=== PATIENT | female | born 1975 | race Caucasian/White ===

== ENCOUNTER 2022-07-09 16:47 | Emergency (ER) | payer OTHER, SELFPAY ==
--- NOTE | ~2022-07-09 | CT_ITS ---
EXAMINATION: CT ABDOMEN AND PELVIS WITH CONTRAST CLINICAL INFORMATION: Left lower quadrant pain COMPARISON: None available. TECHNIQUE: Multidetector volumetric images were obtained from the superior aspect of the liver through the pubic symphysis following administration 85 mL of Omnipaque 350 intravenous contrast. Sagittal and coronal reformatted images were obtained on the technologist's workstation. Oral contrast: No This CT examination was performed using dose optimization techniques as appropriate, variously including the following: *Automated exposure control *Adjustment of mA and/or kV according to patient size (this includes techniques or standardized protocols for targeted exams where dose is matched to indication/reason for exam; i.e. extremities or head) *Use of iterative reconstruction technique DLP: 318 mGy-cm FINDINGS: LUNG BASES: No suspicious abnormality in the visualized lower chest LIVER, GALLBLADDER, AND BILIARY TREE: The liver appears within normal limits the gallbladder is decompressed. No opaque gallstone. No biliary dilation PANCREAS: The pancreatic duct is top normal. No suspicious mass. SPLEEN: Within normal limits ADRENAL GLANDS: No suspicious abnormality KIDNEYS AND URETERS: There is fairly marked cortical medullary differentiation which is symmetric. This could be related to phase of enhancement but is nonspecific. There is no suspicious renal mass. The renal contours are smooth. There is no definite ureteral calculus. BLADDER: The bladder is mildly distended. No suspicious focal abnormality. GASTROINTESTINAL TRACT: Assessment limited by paucity of abdominal fat. There is some opaque material within the colon which could be from previous contrast administration. No convincing localized pericolonic fat stranding. No significant small bowel dilation. No suspicious abnormality the stomach. ABDOMINAL WALL: No significant hernia is appreciated. LYMPH NODES: There are no measurably enlarged abdominal or pelvic lymph nodes. There are multiple surgical clips in the retroperitoneum on the left. VASCULAR: There is no abdominal aortic aneurysm. The portal vein enhances. PELVIC VISCERA: There are coarse calcifications in the uterus consistent with uterine fibroids. No suspicious adnexal mass or collection. OSSEOUS STRUCTURES: No suspicious focal lesion CT/CT abdomen pelvis w IV con IMPRESSION: 1. No etiology for left lower quadrant pain demonstrated. 2. No evidence of bowel obstruction or abscess. 3. No evidence of urinary, biliary or GI tract obstruction. Fleischner guidelines were followed.
[2022-07-09 17:10] VITALS: BP 104/67; PULSE 66; RESP 16; TEMP 36.9; O2SAT 100; BMI 21.2
[2022-07-09 17:41] LABS: UPreg QC Valid YES
[2022-07-09 17:43] LABS: Appearance Urine Cloudy; Color Urine Yellow; Glucose Urine UA Negative (Negative); Leukocyte Esterase Urine Negative (Negative); Nitrite Urine Negative (Negative); Specific Gravity - Urine 1.015 (1.005-1.025); UMIC TRIGGER UACC YES; Urine Blood Moderate (2+) (Negative); Urine Ketones >=160 mg/dL (Negative); Urine Protein Trace mg/dL (Neg-Trace)
[2022-07-09 17:44] LABS: Urine Pregnancy NEGATIVE (NEGATIVE)
[2022-07-09 17:53] LABS: IDNOW Serial# 08D9AD1C
[2022-07-09 17:54] LABS: COVID-19 Test Negative (Negative)
[2022-07-09 17:55] LABS: Bacteria Urine None Seen (None Seen); Hyaline Casts Urine 0-2 /LPF (0-2); RBC Urine 0-2 /HPF (0-2); Squamous Epithelial Cell Urine 0-2 /HPF (0-2); WBC Urine 0-5 /HPF (0-5)
--- NOTE | 2022-07-09 19:26 | ED_ITS ---
HPI - Nausea/Vomiting/Diarrhea General Chief complaint: Nausea/Vomiting/Diarrhea Stated complaint: n/v covid like symptoms Time Seen by Provider: 07/09/22 17:13 Source: patient Mode of arrival: EMS History of Present Illness HPI Narrative: 47-year-old female without significant past medical history states that she has been experiencing nausea, vomiting, multiple episodes of diarrhea since evening. She denies any contaminated food or recent travel. She also denies any blood with the stool and states that her last episode of diarrhea was earlier today and she has only been dry heaving since then. Related Data Previous Rx's Medication Instructions Recorded ondansetron HCl 4 mg tablet 4 mg PO Q8H PRN nausea and 07/09/22 vomiting 4 days #10 tabs Allergies Allergy/AdvReac Type Severity Reaction Status Date / Time No Known Allergies Allergy Verified 07/09/22 17:09 Review of Systems Review of Systems: Pertinent positives and negatives as stated in HPI PMFSH Past Medical History Source: nursing notes reviewed Social History Social History Advance Directives: No Advance Directives Information Provided: No Physical Exam Vital Signs: Vital Signs: Last Vital Signs Temp 98.2 F 07/09/22 21:11 Pulse 77 07/09/22 21:11 Resp 17 07/09/22 21:11 BP 121/71 07/09/22 21:11 Pulse Ox 99 07/09/22 21:11 O2 Del Method Room Air 07/09/22 21:11 BMI result Body Mass Index 21.2 VITAL SIGNS: Reviewed. GENERAL: Well developed, well nourished, in no acute distress. HEAD: Normocephalic/atraumatic EYES: PERRLA, EOMI EARS: Ext canals without abnormality, TMs non-bulging and non-erythematous NOSE: Nares patent bilateral OROPHARYNX: no oral lesions noted, posterior pharynx clear and non-erythematous without noted tonsillar enlargement/erythema/exudates NECK: Supple, no adenopathy LUNGS: Normal breath sounds. No adventitious sounds or accessory muscle use. SpO2<100> CARDIOVASCULAR: Regular rate and rhythm without noted murmurs ABDOMEN: Soft, left lower quadrant pain, non-distended with bowel sounds. MUSCULOSKELETAL: No tenderness, deformities, or effusions noted on gross inspection. EXTREMITIES: No cyanosis, clubbing or edema. SKIN: Inspection of the skin reveals no rashes NEUROLOGIC: Alert and oriented x 4. Strength and sensation to light touch were grossly intact x 4. Medications Administered Discontinued Medications Generic Name Dose Route Start Last Admin Trade Name Pachecoq PRN Reason Stop Dose Admin Iohexol 100 ml 07/09/22 20:09 07/09/22 20:09 Iohexol 350 Mg/Ml 100 Ml Infus..Btl IV 07/09/22 20:10 85 ml ONCE ONE Administration Ondansetron HCl 4 mg 07/09/22 17:14 07/09/22 17:44 Ondansetron Odt 4 Mg Tab.Rapdis TRANSLINGU 07/09/22 17:15 Not Given ONCE ONE Medical Decision Making Medical Decision Making MDM Narrative: 47-year-old female with multiple episodes of nausea, vomiting, diarrhea suggesting possible gastroenteritis, renal colic, diverticulitis and lower clinical suspicion for UTI. - labs, IV fluids, antiemetics, CT abdomen/pelvis, UA Review of all investigations demonstrates likely gastroenteritis or possible cyclical vomiting. Patient is tolerating oral intake and will be discharged at this time. She is otherwise hemodynamically stable. Differential Diagnosis Please see the discussion above Lab Data Please see the discussion above Labs: Lab Results 07/09/22 07/09/22 07/09/22 Range/Units 17:32 17:33 17:33 Urine Color Yellow Urine Appearance Cloudy Urine pH 6.0 (5.0-9.0) Ur Specific [place] 1.015 (1.005-1.025) Urine Protein Trace (Neg-Trace) mg/dL Urine Glucose (UA) Negative (Negative) mg/dL Urine Ketones >=160 (Negative) mg/dL Urine Blood Moderate (2+) H (Negative) Urine Nitrite Negative (Negative) Ur Leukocyte Esterase Negative (Negative) Urine RBC 0-2 (0-2) /HPF Urine WBC 0-5 (0-5) /HPF Ur Squamous Epith Cells 0-2 (0-2) /HPF Urine Bacteria None Seen (None Seen) Hyaline Casts 0-2 (0-2) /LPF Urine Test NEGATIVE (NEGATIVE) COVID-19 (ANTHONY) Negative (Negative) COVID-19 Clin Com See Note Radiology Impression Radiologist Impression: My interpretation is in agreement with radiology's impression of the imaging study. Discharge Plan Discharge Clinical Impression: Gastroenteritis, Dehydration Patient Disposition: Home, Self-Care Instructions: Dehydration (ED), Gastroenteritis (ED) Additional Instructions: 1. You have been prescribed in antinausea medication and should use this medication to continue to hydrate. 2. Use caution with the cannabis as this may contribute to your symptoms. 3. Follow-up with your primary care provider. Return to the ER for any worsening symptoms. Prescriptions: New ondansetron HCl 4 mg tablet 4 mg PO Q8H PRN (Reason: nausea and vomiting) 4 Days Qty: 10 0RF
[2022-07-09] MEDS: iohexoL 350 MG/ML 100 ML INFUS..BTL IV (20:09)
[2022-07-09 21:11] VITALS: BP 121/71; PULSE 77; RESP 17; TEMP 36.8; O2SAT 99
== END 2022-07-09 22:47 | disposition home or self-care (01) ==
PROVIDERS: Emergency Provider Student in an Organized Health Care Education/Training Program
DX: K52.9 Noninfective gastroenteritis and colitis, unspecified (principal); E86.0 Dehydration; Z20.822 Contact with and (suspected) exposure to COVID-19; Z20.828 Contact with and (suspected) exposure to other viral communicable diseases; Z79.899 Other long term (current) drug therapy
CPT/HCPCS: 74177; 81001; 81025; 87635; 99284; Q9967

== ENCOUNTER 2022-08-15 21:32 | Inpatient (IN) | payer OTHER, SELFPAY ==
[2022-08-16] MEDS: hydrOXYzine HCL 25 MG TABLET PO (00:30)
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
[2022-08-16 01:09] VITALS: BMI 22.0
[2022-08-16 06:00] VITALS: BP 128/89; PULSE 101; RESP 16; TEMP 37.2
[2022-08-16 09:07] LABS: MANUAL DIFF FLAG NO
[2022-08-16 09:17] LABS: Basophils Absolute Auto 0.1 X10*3/uL (0.0-0.2); Basophils Percent Auto 0.9 % (0-2); Eosinophils Absolute Auto 0.1 X10*3/uL (0.0-0.4); Eosinophils Percent Auto 2.3 % (0-4); Hematocrit 38.8 % (37.0-47.0); Hemoglobin 13.3 g/dl (12.0-16.0); Imm Gran Abs Auto 0.02 X10*3/uL (0.00-0.03); Imm Gran Pct Auto 0.3 % (0.0-0.4); Lymphocytes Absolute Auto 2.6 X10*3/uL (1.2-4.9); Lymphocytes Percent Auto 45.5 % (20-40); Mean Corpuscular HGB Conc 34.3 g/dl (31.0-35.0); Mean Corpuscular Volume 87.4 fL (80.0-98.0); Mean Platelet Volume 10.8 fL (9.4-12.3); Monocytes Absolute Auto 0.3 X10*3/uL (0.1-1.2); Monocytes Percent Auto 5.9 % (2-11); Neutrophils Absolute Auto 2.6 x10*3/uL (2.0-8.3); Neutrophils Percent Auto 45.1 % (45-73); Platelet Count 187 X10*3/uL (160-400); Red Blood Count 4.44 X10*6/uL (4.20-5.50); Red Cell Distribution Width 12.6 % (11.0-16.0); White Blood Count 5.8 X10*3/uL (4.8-10.8)
[2022-08-16 10:00] LABS: Alanine Aminotransferase 17 U/L (0-31); Albumin Level 3.8 g/dL (3.5-5.0); Alkaline Phosphatase 53 U/L (39-117); Anion Gap 13 (12-20); Aspartate Amino Transferase 21 U/L (5-31); Bilirubin Total 1.5 mg/dL (0.0-1.0); Blood Urea Nitrogen 7 mg/dL (9-16); Calcium 9.4 mg/dL (8.4-10.2); Carbon Dioxide 24 mmol/L (22-29); Chloride 108 mmol/L (96-108); Cholesterol 185 mg/dL; Creatinine Clr Calc Pharmacy 68.1; Estimated Glomerular Filt Rate > 60; Glucose Fasting 84 mg/dL (60-99); HDL Cholesterol 68 mg/dL; LDL Cholesterol Calculated 107 mg/dl; Potassium 3.8 mmol/L (3.3-5.1); Sodium 141 mmol/L (135-145); Total Protein 6.9 g/dL (6.5-8.0); Triglycerides 51 mg/dL
--- NOTE | 2022-08-16 11:04 | PM.PSYDC ---
DS: Providers Provider Date of admission: 08/15/22 21:32 Primary care physician: Unknown Physician Consults: 08/15/22 22:24 Consult to Hospitalist Routine Comment: Consulting Provider: Hospitalist Reason For Exam: adm physical DS: Medications Discharge Medications Home Medications: Previous Rx's Medication Instructions Recorded ondansetron HCl 4 mg tablet 4 mg PO Q8H PRN nausea and 07/09/22 vomiting 4 days #10 tabs Data Data Completed and Pending Completed studies during hospitalization [Text1]: 08/16/22 08/16/22 08:04 08:04 WBC 5.8 RBC 4.44 Hgb 13.3 Hct 38.8 MCV 87.4 MCH 30.0 MCHC 34.3 RDW 12.6 Plt Count 187 MPV 10.8 Immature Gran % (Auto) 0.3 Neut % (Auto) 45.1 Lymph % (Auto) 45.5 H Calvert % (Auto) 5.9 Eos % (Auto) 2.3 Baso % (Auto) 0.9 Lymph # (Auto) 2.6 Calvert # (Auto) 0.3 Eos # (Auto) 0.1 Baso # (Auto) 0.1 Abs Immat Gran (auto) 0.02 Absolute Neuts (auto) 2.6 Absolute Nucleated RBC 0.000 Nucleated RBC % (auto) 0.0 Sodium 141 Potassium 3.8 Chloride 108 Carbon Dioxide 24 Anion Gap 13 BUN 7 L Creatinine 0.79 Estim Creat Clear Calc 68.1 Estimated GFR > 60 Fasting Glucose 84 Calcium 9.4 Total Bilirubin 1.5 H AST 21 ALT 17 Alkaline Phosphatase 53 Total Protein 6.9 Albumin 3.8 Triglycerides 51 Cholesterol 185 LDL Cholesterol, Calc 107 HDL Cholesterol 68 DS: Summary Time Spent with Patient Time attestation: Total time managing care of this patient today ____ minutes. Discharge Plan Discharge Referrals: Physician,Unknown J [Primary Care Provider] - 1 Week Discharge Medications: No Action ondansetron HCl 4 mg tablet 4 mg PO Q8H PRN (Reason: nausea and vomiting) 4 Days Qty: 10 0RF
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
[2022-08-16 13:21] LABS: UPreg QC Valid YES; Urine Pregnancy NEGATIVE (NEGATIVE)
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
[2022-08-16 15:16] LABS: Estimated Average Glucose 85 mg/dL; Hemoglobin A1c % 4.6 %
[2022-08-16] MEDS: SUMAtriptan succinate 50 MG TABLET PO (16:34)
[2022-08-16 18:00] VITALS: BP 126/78; PULSE 82; TEMP 36.7; O2SAT 97
[2022-08-16] MEDS: Magnesium Hydrox/Alum Hydrox 30 ML ORAL.SUSP PO (18:29)
[2022-08-16] MEDS: Ondansetron ODT 8 MG TAB.RAPDIS TRANSLINGU (18:53)
[2022-08-16] MEDS: ARIPiprazole 2 MG TABLET PO (19:40)
[2022-08-16] MEDS: clonazePAM 0.5 MG TABLET PO (20:30)
--- NOTE | 2022-08-16 21:47 | PC.NURSE ---
Patient did not want POC done because she feels her diabetes is diet controlled. She did c/o migraine headache and was given Imitrex with positive effect. She also c/o nausea (from the hospital food, and she is vegan) and Zofran as a prn was ordered by Dr. Calixto. At this time, 2150 patient is asleep and in NAD.
[2022-08-17 06:00] VITALS: BP 124/82; PULSE 97; RESP 16
[2022-08-17 08:09] LABS: Glucose, Whole Blood 108 mg/dL (60-115)
[2022-08-17] MEDS: Sertraline HCL 25 MG TABLET PO (08:49)
[2022-08-17] MEDS: ARIPiprazole 2 MG TABLET PO (08:49)
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
[2022-08-17 16:37] LABS: Glucose, Whole Blood 147 mg/dL (60-115)
[2022-08-17 16:50] VITALS: BP 131/93; PULSE 92; RESP 16; TEMP 36.9; O2SAT 99
[2022-08-17] MEDS: cloNIDine HCL 0.1 MG TABLET PO (19:19)
[2022-08-18] MEDS: ARIPiprazole 2 MG TABLET PO (08:35)
[2022-08-18] MEDS: Sertraline HCL 50 MG TABLET PO (08:35)
[2022-08-18 08:48] LABS: Glucose, Whole Blood 93 mg/dL (60-115)
[2022-08-18 09:44] VITALS: BP 145/90; PULSE 85; RESP 17; TEMP 36.8; O2SAT 100
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
[2022-08-18] MEDS: Magnesium Hydrox/Alum Hydrox 30 ML ORAL.SUSP PO (10:42)
[2022-08-18] MEDS: Acetaminophen 325 MG TABLET 650 MG PO (12:14)
[2022-08-18 18:00] VITALS: BP 141/85; PULSE 96; RESP 16; TEMP 36; O2SAT 97
[2022-08-18] MEDS: cloNIDine HCL 0.1 MG TABLET PO (19:43)
[2022-08-18 23:02] LABS: Glucose, Whole Blood 133 mg/dL (60-115)
[2022-08-19 08:06] VITALS: BP 136/83; PULSE 91; RESP 15; TEMP 36.7; O2SAT 100
[2022-08-19] MEDS: Sertraline HCL 25 MG TABLET 75 MG PO (08:10)
[2022-08-19] MEDS: ARIPiprazole 2 MG TABLET PO (08:10)
[2022-08-19] MEDS: cloNIDine HCL 0.1 MG TABLET PO ×2 (08:14→19:50)
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
[2022-08-19 16:42] LABS: Glucose, Whole Blood 81 mg/dL (60-115)
[2022-08-19 16:46] LABS: Glucose, Whole Blood 103 mg/dL (60-115)
[2022-08-19 19:45] VITALS: BP 129/79; PULSE 80; TEMP 36.8
[2022-08-19] MEDS: Acetaminophen 325 MG TABLET 650 MG PO (19:49)
[2022-08-19] MEDS: clonazePAM 0.5 MG TABLET PO (19:50)
[2022-08-19] MEDS: Mirtazapine 15 MG TABLET PO (19:50)
[2022-08-19 20:53] LABS: Glucose, Whole Blood 86 mg/dL (60-115)
--- NOTE | 2022-08-20 03:40 | PC.NURSE ---
Patient came out of room distraught, crying. Stated her roommate, who is confused and just assigned a sitter, was being very loud and getting up often loudly asking sitter to be assisted to the bathroom. This is the second night I haven't gotten any sleep because of her, I can't take it anymore! TW made the decision to let her rest in Rm [id number] for the night. Patient was very grateful and became calm, appearing to sleep right away.
[2022-08-20 08:01] VITALS: BP 124/91; PULSE 84; RESP 16; TEMP 36.8; O2SAT 99
[2022-08-20 08:28] LABS: Glucose, Whole Blood 87 mg/dL (60-115)
[2022-08-20] MEDS: ARIPiprazole 2 MG TABLET PO (09:30)
[2022-08-20] MEDS: Sertraline HCL 25 MG TABLET 75 MG PO (09:30)
[2022-08-20] MEDS: Acetaminophen 325 MG TABLET 650 MG PO ×2 (09:34→20:08)
[2022-08-20 16:37] LABS: Glucose, Whole Blood 99 mg/dL (60-115)
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
[2022-08-20 19:46] VITALS: BP 168/72; PULSE 84; TEMP 36.3
[2022-08-20] MEDS: Mirtazapine 30 MG TABLET PO (20:08)
[2022-08-20] MEDS: cloNIDine HCL 0.1 MG TABLET PO (20:08)
[2022-08-20] MEDS: clonazePAM 0.5 MG TABLET PO (20:08)
[2022-08-20 20:20] LABS: Glucose, Whole Blood 90 mg/dL (60-115)
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
[2022-08-21] MEDS: Acetaminophen 325 MG TABLET 650 MG PO (08:37)
[2022-08-21] MEDS: ARIPiprazole 2 MG TABLET PO (08:37)
[2022-08-21] MEDS: Sertraline HCL 25 MG TABLET 75 MG PO (08:37)
[2022-08-21 08:40] VITALS: BP 160/94; PULSE 69; RESP 18; TEMP 36.3; O2SAT 100
[2022-08-21 08:55] LABS: Glucose, Whole Blood 77 mg/dL (60-115)
[2022-08-21 19:23] VITALS: RESP 18; TEMP 36.2; O2SAT 97
[2022-08-21] MEDS: cloNIDine HCL 0.1 MG TABLET PO (20:47)
[2022-08-21] MEDS: traZODone HCL 50 MG TABLET PO (21:26)
[2022-08-22] MEDS: Acetaminophen 325 MG TABLET 650 MG PO ×2 (01:05→08:59)
[2022-08-22] MEDS: traZODone HCL 50 MG TABLET PO (01:05)
[2022-08-22] MEDS: Sertraline HCL 100 MG TABLET PO (08:59)
[2022-08-22] MEDS: ARIPiprazole 2 MG TABLET PO (08:59)
[2022-08-22] MEDS: hydrOXYzine HCL 25 MG TABLET PO (09:02)
[2022-08-22 13:41] VITALS: BP 118/82; TEMP 36.4
[2022-08-22 21:15] VITALS: BP 134/90; PULSE 76; TEMP 36.4; O2SAT 100
[2022-08-22] MEDS: cloNIDine HCL 0.1 MG TABLET PO (21:29)
[2022-08-22] MEDS: traZODone HCL 100 MG TABLET PO (21:55)
[2022-08-22] MEDS: Gabapentin 100 MG CAPSULE PO (21:55)
--- NOTE | 2022-08-22 23:34 | PC.NURSE ---
Patient was concerned that she was not being prescribed her usual dose of Trazadone 100 mg po HS as prn for sleep and also Gabapentin 100 mg po tid as scheduled. Dr. Vargas was notified and orders were put in and patient was given both Trazadone and Gabapentin. Patient appears to be resting in NAD.
[2022-08-23] MEDS: traZODone HCL 100 MG TABLET PO ×3 (01:45→22:24)
[2022-08-23 08:40] LABS: Glucose, Whole Blood 144 mg/dL (60-115)
[2022-08-23] MEDS: Sertraline HCL 100 MG TABLET PO (08:40)
[2022-08-23] MEDS: ARIPiprazole 2 MG TABLET PO (08:40)
[2022-08-23 08:42] VITALS: BP 122/83; PULSE 105; RESP 16; TEMP 37.2; O2SAT 97
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
[2022-08-23] MEDS: Gabapentin 100 MG CAPSULE 200 MG PO ×2 (11:36→14:23)
[2022-08-23 11:43] LABS: Glucose, Whole Blood 84 mg/dL (60-115)
[2022-08-23 17:26] LABS: Glucose, Whole Blood 124 mg/dL (60-115)
[2022-08-23 20:21] LABS: Glucose, Whole Blood 93 mg/dL (60-115)
[2022-08-23 20:55] VITALS: BP 140/87; TEMP 36.4; O2SAT 95
[2022-08-23] MEDS: Gabapentin 300 MG CAPSULE PO (20:56)
[2022-08-23] MEDS: cloNIDine HCL 0.1 MG TABLET PO (20:56)
[2022-08-24] MEDS: ARIPiprazole 2 MG TABLET PO (08:36)
[2022-08-24] MEDS: Gabapentin 300 MG CAPSULE PO ×3 (08:36→20:22)
[2022-08-24] MEDS: Sertraline HCL 100 MG TABLET PO (08:36)
[2022-08-24] MEDS: Acetaminophen 325 MG TABLET 650 MG PO ×2 (10:06→20:35)
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
[2022-08-24 13:36] VITALS: BP 129/74; PULSE 86; RESP 16; TEMP 36.7; O2SAT 100
[2022-08-24 20:15] VITALS: BP 100/71; PULSE 99; TEMP 36.4
[2022-08-24] MEDS: cloNIDine HCL 0.1 MG TABLET PO (20:23)
[2022-08-24] MEDS: traZODone HCL 100 MG TABLET PO (20:23)
[2022-08-25] MEDS: traZODone HCL 100 MG TABLET PO (00:52)
[2022-08-25] MEDS: Gabapentin 300 MG CAPSULE PO (08:31)
[2022-08-25] MEDS: Acetaminophen 325 MG TABLET 650 MG PO (08:31)
[2022-08-25] MEDS: ARIPiprazole 2 MG TABLET PO (08:32)
[2022-08-25] MEDS: Sertraline HCL 100 MG TABLET PO (08:32)
[2022-08-25 08:42] VITALS: BP 142/82; PULSE 86; RESP 16; TEMP 36.8; O2SAT 96
--- NOTE | 2022-08-25 09:42 | PM.PSYDC ---
DS: Providers Provider Date of Service: 08/25/22 Date of admission: 08/15/22 21:32 Date of discharge: 08/25/22 Primary care physician: Unknown Physician Attending physician on admission: Federico Lynn Consults: 08/15/22 22:24 Consult to Hospitalist Routine Comment: Consulting Provider: Hospitalist Reason For Exam: adm physical Attending physician on discharge: Federico Lynn DS: Diagnosis Discharge Diagnosis (1) Depression, major, severe recurrence: Status: Acute (2) Chronic post-traumatic stress disorder (PTSD): Status: Acute DS: Medications Discharge Medications Home Medications: Previous Rx's Medication Instructions Recorded aripiprazole 2 mg tablet (Abilify) 2 mg PO DAILY 30 days #30 tabs 08/25/22 clonidine HCl 0.1 mg tablet 0.1 mg PO Q4H PRN anxiety/insomnia 08/25/22 30 days #90 tabs gabapentin 300 mg capsule 300 mg PO TID 30 days #90 caps 08/25/22 hydroxyzine HCl 25 mg tablet 25 mg PO Q6H PRN Anxiety 30 days 08/25/22 #90 tabs sertraline 100 mg tablet 100 mg PO DAILY 30 days #30 tabs 08/25/22 sumatriptan succinate 50 mg tablet 50 mg PO DAILY MRX1 PRN Migraine 08/25/22 Headache 30 days #8 tabs trazodone 100 mg tablet 100 mg PO BEDTIME PRN Insomnia 30 08/25/22 days #30 tabs Mental Status Exam Mental Status Exam Narrative: Pt is alert and oriented; behavior is cooperative, calm; patient is not in distress; dressed in casual attire with combed hair/dreadlocks and adequate hygiene; mood is described as ok and affect congruent; eye contact appropriate; Speech is normal rate, volume and prosody and not pressured; no psychomotor retardation present; thought process is organized and goal directed; Thought content is aftercare, staying stable; otherwise pertinent to relevant topics and without any delusional content, paranoid ideations or grandiosity; denies any SI/HI. There is no evidence of perceptual disturbance. Patients insight and judgment fair and adequate. Data Data Completed and Pending Completed studies during hospitalization [Text1]: 08/18/22 08/19/22 08/19/22 20:07 08:26 16:43 POC Glucose 133 H 81 103 08/19/22 08/20/22 08/20/22 20:50 08:22 16:34 POC Glucose 86 87 99 08/20/22 08/21/22 08/23/22 20:07 08:52 08:36 POC Glucose 90 77 144 H 08/23/22 08/23/22 08/23/22 11:36 17:19 20:17 POC Glucose 84 124 H 93 DS: Summary Hospital Course Hospital Course: Patient admitted for safety containment in the context of MDD, PTSD and self-reported ASD and Tourette's, who presents for worsening depression and the face of increasing psychosocial stressors including homelessness. On admission patient was depressed with intermittent SI which was mostly passive; patient was calm and cooperative. She had been off medications for a while but agreed to restart low-dose Abilify and Zoloft. Discussed history and patient denies any discrete manic episodes or behaviors. Patient's depression started to arabella however while on the unit she found out that her beloved niece committed suicide. Patient was grateful that the event happened while she was on the inpatient unit, afraid that in an emotional reaction she would be vulnerable to self-harm. Patient's Zoloft was titrated; clonidine prn used for anxiety and she was also retried on gabapentin for fibromyalgia. Over subsequent days, patient's depression fully abated and SI fully resolved. She complained of fibromyalgia pain but was grateful to be restarted on gabapentin. Patient felt ready for discharge and to continue treatment in the community. She continually demonstrated good behavioral and impulse control on the unit, was appropriate with peers and staff and engaged in treatment, attending groups and forthcoming in 1 on 1 sessions. Patient was future oriented outpatient providers established; she is returning to her supportive . Patient was not in imminent risk for harm to self or others request for discharge honored. Time spent discussing smoking cessation with patient: 3 to 10 minutes Status at Discharge Functional status at discharge: independent ambulation Overall status at discharge: patient is back to baseline Time Spent with Patient Time attestation: Total time managing care of this patient today ____ minutes. Time spent: Less than 30 minutes Discharge Plan Discharge Anticipated Discharge Date/Time: 08/25/22 11:30 Patient Disposition: Home, Self-Care Discharge Diagnosis: MDD, recurrent, severe w/out psychosis, in full remission Referrals: [facility] Intake Carroll Palacios [Other] - 08/29/22 10:00 am (Telehealth During this appointment ask about case management services. They have been made aware that you are interested in these services.) [facility] Psych Eval Yvonne Ames [Other] - 09/21/22 3:00 pm (Telehealth) [facility] Yvonne Ames Med Management [Other] - 10/19/22 3:00 pm (Telehealth) [facility] Case Mngmt Coord. Isabella Perez [Other] - 1 Week (If needed after your intake, you can follow up with Isabella. ) Physician,Unknown J [Primary Care Provider] - 1 Week Discharge Medications: New clonidine HCl 0.1 mg Tablet 0.1 mg PO Q4H PRN (Reason: anxiety/insomnia) 30 Days Qty: 90 1RF Protocol: Hold for SBP< HOLD for SBP < : 90 aripiprazole [Abilify] 2 mg Tablet 2 mg PO DAILY 30 Days Qty: 30 1RF gabapentin 300 mg Capsule 300 mg PO TID 30 Days Qty: 90 1RF hydroxyzine HCl 25 mg Tablet 25 mg PO Q6H PRN (Reason: Anxiety) 30 Days Qty: 90 1RF sertraline 100 mg Tablet 100 mg PO DAILY 30 Days Qty: 30 1RF sumatriptan succinate 50 mg Tablet 50 mg PO DAILY MRX1 PRN (Reason: Migraine Headache) 30 Days Qty: 8 1RF trazodone 100 mg Tablet 100 mg PO BEDTIME PRN (Reason: Insomnia) 30 Days Qty: 30 1RF Discontinued ondansetron HCl 4 mg tablet 4 mg PO Q8H PRN (Reason: nausea and vomiting) 4 Days Qty: 10 0RF Discharge Orders: Discharge Order (Routine); Ordered 08/25/22 Ordered By: Federico Lynn Diet: Regular diet Activity on Discharge: As tolerated Stand Alone Forms: Patient Portal Discharge page Care Plan Goals: Maintain mood and safe behaviors Take medications as prescribed Continue to pursue sobriety Practice coping skills Continue with outpatient providers and reach out to them as needed Health Concerns: Mood stability and behaviors Fibromyalgia Plan of Treatment: Follow up with your PCP, psychiatric provider and other outpatient providers regarding above concerns Take medications as prescribed Assessment: Risk assessment at time of discharge:? Patient was interviewed prior to discharge and found to be fully oriented and without any SI or HI. Patient has insight and demonstrates good judgment in terms of wanting to pursue treatment. Patient is not in imminent risk of harm to self or others and has a safety plan that includes presenting to the closest ER or calling 911 if feeling unsafe.? Patient has been observed closely by nursing and unit staff throughout admission; patient has not engaged in any behaviors that suggest dangerousness to self or others and has demonstrated appropriate behaviors and impulse control
== END 2022-08-25 11:45 | disposition home or self-care (01) | DRG 885 ==
PROVIDERS: Physician Assistant; Psychiatry & Neurology Psychiatry; Admitting Provider Psychiatry & Neurology Psychiatry; Visit Provider Psychiatry & Neurology Psychiatry
DX: F33.2 Major depressive disorder, recurrent severe without psychotic features (principal); R45.851 Suicidal ideations; G89.4 Chronic pain syndrome; F84.0 Autistic disorder; E11.9 Type 2 diabetes mellitus without complications; G93.32 Myalgic encephalomyelitis/chronic fatigue syndrome; Z62.810 Personal history of physical and sexual abuse in childhood; J45.20 Mild intermittent asthma, uncomplicated; F43.12 Post-traumatic stress disorder, chronic; M79.7 Fibromyalgia; Z59.01 Sheltered homelessness; Z87.891 Personal history of nicotine dependence; Z79.899 Other long term (current) drug therapy
CPT/HCPCS: 36415; 80053; 80061; 81025; 82947; 83036; 85025

== ENCOUNTER 2022-09-08 10:06 | Inpatient (IN) | payer OTHER, SELFPAY ==
[2022-09-08 10:15] VITALS: BP 109/61; BP 112/68; PULSE 60; PULSE 66; RESP 16; TEMP 36.9; O2SAT 98; BMI 21.3
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
[2022-09-08 11:38] LABS: MANUAL DIFF FLAG NO
[2022-09-08 11:43] LABS: Basophils Percent Auto 0.8 % (0-2); Eosinophils Absolute Auto 0.1 X10*3/uL (0.0-0.4); Hematocrit 33.2 % (37.0-47.0); Hemoglobin 11.3 g/dl (12.0-16.0); Imm Gran Abs Auto 0.03 X10*3/uL (0.00-0.03); Imm Gran Pct Auto 0.6 % (0.0-0.4); Lymphocytes Absolute Auto 1.3 X10*3/uL (1.2-4.9); Lymphocytes Percent Auto 25.1 % (20-40); Mean Corpuscular Hemoglobin 29.7 pg (27.0-33.0); Mean Corpuscular Volume 87.1 fL (80.0-98.0); Mean Platelet Volume 10.1 fL (9.4-12.3); Monocytes Absolute Auto 0.2 X10*3/uL (0.1-1.2); Monocytes Percent Auto 4.7 % (2-11); Neutrophils Absolute Auto 3.4 x10*3/uL (2.0-8.3); Neutrophils Percent Auto 66.8 % (45-73); Platelet Count 218 X10*3/uL (160-400); Red Blood Count 3.81 X10*6/uL (4.20-5.50); Red Cell Distribution Width 12.9 % (11.0-16.0); UPreg QC Valid YES; Urine Pregnancy NEGATIVE (NEGATIVE); White Blood Count 5.1 X10*3/uL (4.8-10.8)
[2022-09-08 11:45] LABS: Appearance Urine Clear; Color Urine Yellow; Glucose Urine UA Negative (Negative); Leukocyte Esterase Urine Small (1+) (Negative); Nitrite Urine Negative (Negative); PH 8.5 (5.0-9.0); Specific Gravity - Urine 1.015 (1.005-1.025); UMIC TRIGGER UACC YES; Urine Blood Negative (Negative); Urine Ketones Negative (Negative); Urine Protein Negative (Neg-Trace)
[2022-09-08 11:55] LABS: Bacteria Urine Trace (None Seen); Hyaline Casts Urine 0-2 /LPF (0-2); RBC Urine 0-2 /HPF (0-2); UACC Culture Trigger YES; WBC Urine 0-5 /HPF (0-5)
[2022-09-08 11:58] LABS: Alanine Aminotransferase 32 U/L (0-31); Albumin Level 3.5 g/dL (3.5-5.0); Alkaline Phosphatase 48 U/L (39-117); Amphetamine Screen Urine Not Detected (Not Detect); Anion Gap 13 (12-20); Aspartate Amino Transferase 30 U/L (5-31); Barbiturates, Urine Not Detected (Not Detect); Benzodiazepines Screen Urine Not Detected (Not Detect); Bilirubin Total 0.4 mg/dL (0.0-1.0); Blood Urea Nitrogen 10 mg/dL (9-16); Calcium 9.3 mg/dL (8.4-10.2); Cannabinoid Screen Urine POSITIVE (Not Detect); Carbon Dioxide 25 mmol/L (22-29); Chloride 107 mmol/L (96-108); Cocaine Screen Urine Not Detected (Not Detect); Creatinine Clr Calc Pharmacy 82.7; Estimated Glomerular Filt Rate > 60; Ethanol < 10 mg/dL; Glucose Random 103 mg/dL (60-115); Opiate Screen Urine Not Detected (Not Detect); Phencyclidine Screen Urine Not Detected (Not Detect); Potassium 4.3 mmol/L (3.3-5.1); Sodium 141 mmol/L (135-145); Total Protein 6.5 g/dL (6.5-8.0)
[2022-09-08 11:59] LABS: COVID-19 Test Negative (Negative); IDNOW Serial# BCCEAD1C
[2022-09-08 12:00] LABS: Fentanyl, urine POSITIVE (Not Detect)
[2022-09-08 12:19] LABS: Acetaminophen LAB < 17 mcg/mL (<30); Salicylate < 5.0 mg/dL (15-30)
[2022-09-08 18:41] VITALS: BP 112/73; PULSE 60; RESP 16; TEMP 36.9; O2SAT 99
[2022-09-08 19:26] VITALS: BP 140/80; PULSE 87; TEMP 36.2; O2SAT 99
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
[2022-09-08] MEDS: traZODone HCL 100 MG TABLET PO (21:23)
[2022-09-08] MEDS: Acetaminophen 325 MG TABLET 650 MG PO (21:23)
[2022-09-08] MEDS: hydrOXYzine HCL 25 MG TABLET PO (21:23)
[2022-09-09] MEDS: cloNIDine HCL 0.1 MG TABLET PO ×2 (00:47→13:05)
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
[2022-09-09 08:05] LABS: Cholesterol 211 mg/dL; HDL Cholesterol 77 mg/dL; LDL Cholesterol Calculated 120 mg/dl; Magnesium 1.9 mg/dL (1.6-2.6); Triglycerides 74 mg/dL
[2022-09-09 08:22] LABS: Free T4 (Free Thyroxine) 1.01 ng/dL (0.71-1.85); Thyroid Stimulating Hormone 1.61 uIU/mL (0.32-4.0)
[2022-09-09 08:27] VITALS: BP 113/74; PULSE 63; RESP 16; TEMP 36.7; O2SAT 100
[2022-09-09] MEDS: ARIPiprazole 2 MG TABLET PO (08:33)
[2022-09-09] MEDS: Sertraline HCL 100 MG TABLET PO (08:33)
[2022-09-09] MEDS: Gabapentin 300 MG CAPSULE PO (08:33)
[2022-09-09 08:34] LABS: Folate 17.7 ng/mL (> or = 4.0); Vitamin B12 717 pg/mL (200-900)
[2022-09-09] MEDS: Acetaminophen 325 MG TABLET 650 MG PO ×3 (08:49→22:05)
[2022-09-09 09:44] LABS: Estimated Average Glucose 94 mg/dL; Hemoglobin A1c % 4.9 %
[2022-09-09 13:00] VITALS: BP 125/70; PULSE 66
[2022-09-09] MEDS: hydrOXYzine HCL 25 MG TABLET PO ×2 (13:05→22:05)
[2022-09-09] MEDS: SUMAtriptan succinate 50 MG TABLET PO (15:26)
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
[2022-09-09 18:00] VITALS: BP 112/73; PULSE 73; TEMP 36.8; O2SAT 100
--- NOTE | 2022-09-09 19:57 | PC.NURSE ---
Addendum entered by Nicki Caputo RN 09/09/22 21:49: no drainage was reported. no redness seen. Original Note: dressing changed on left arm to a gauze and tape. pt reports it hurts less.
[2022-09-10] MEDS: cloNIDine HCL 0.1 MG TABLET PO ×3 (00:07→19:55)
[2022-09-10] MEDS: hydrOXYzine HCL 25 MG TABLET PO ×2 (04:37→19:55)
[2022-09-10] MEDS: SUMAtriptan succinate 50 MG TABLET PO ×2 (04:37→19:56)
[2022-09-10 07:58] LABS: Iron 77 mcg/dL (30-160); Percent Iron Saturation 25 % (15-50); Total Iron Binding Capacity 314 mcg/dL (228-428); Unsaturated Iron Binding 237 ug/dL
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
[2022-09-10] MEDS: Multivitamin TABLET 1 TAB PO (09:30)
[2022-09-10] MEDS: ARIPiprazole 2 MG TABLET 3 MG PO (09:32)
[2022-09-10] MEDS: Sertraline HCL 100 MG TABLET PO (09:32)
[2022-09-10 09:36] VITALS: BP 151/78; PULSE 80; RESP 20; TEMP 36.8; O2SAT 100
[2022-09-10 18:00] VITALS: BP 124/77; PULSE 68; RESP 20; TEMP 36.3; O2SAT 97
[2022-09-10] MEDS: traZODone HCL 100 MG TABLET PO (20:05)
[2022-09-11] MEDS: traZODone HCL 100 MG TABLET PO ×2 (01:38→20:24)
[2022-09-11] MEDS: Acetaminophen 325 MG TABLET 650 MG PO ×2 (01:38→09:00)
[2022-09-11] MEDS: cloNIDine HCL 0.1 MG TABLET PO ×2 (01:38→14:46)
[2022-09-11 08:32] VITALS: BP 114/72; PULSE 82; RESP 16; TEMP 36.6; O2SAT 100
[2022-09-11] MEDS: Sertraline HCL 100 MG TABLET PO (09:00)
[2022-09-11] MEDS: Multivitamin TABLET 1 TAB PO (09:00)
[2022-09-11] MEDS: ARIPiprazole 2 MG TABLET 3 MG PO (09:00)
[2022-09-11] MEDS: hydrOXYzine HCL 25 MG TABLET PO ×2 (13:03→20:24)
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
[2022-09-11] MEDS: SUMAtriptan succinate 50 MG TABLET PO (14:46)
[2022-09-11 18:00] VITALS: BP 109/66; PULSE 68; TEMP 36.2
[2022-09-12] MEDS: traZODone HCL 100 MG TABLET PO ×2 (00:08→22:02)
[2022-09-12 08:50] VITALS: BP 123/66; RESP 20; TEMP 36; O2SAT 100
[2022-09-12] MEDS: Acetaminophen 325 MG TABLET 650 MG PO ×2 (08:52→22:00)
[2022-09-12] MEDS: ARIPiprazole 2 MG TABLET 3 MG PO (08:52)
[2022-09-12] MEDS: Multivitamin TABLET 1 TAB PO (08:53)
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
[2022-09-12] MEDS: cloNIDine HCL 0.1 MG TABLET PO ×2 (13:15→22:02)
[2022-09-12] MEDS: hydrOXYzine HCL 50 MG TABLET PO ×2 (13:15→22:00)
[2022-09-12 13:16] VITALS: BP 121/82; PULSE 74
[2022-09-12] MEDS: SUMAtriptan succinate 50 MG TABLET PO (18:50)
[2022-09-12 19:50] VITALS: BP 128/71; PULSE 83; RESP 16; TEMP 36.4; O2SAT 99
[2022-09-13] MEDS: traZODone HCL 100 MG TABLET PO ×2 (03:13→21:19)
[2022-09-13 08:35] VITALS: BP 144/86; PULSE 84; RESP 18; TEMP 36.5; O2SAT 98
[2022-09-13] MEDS: Multivitamin TABLET 1 TAB PO (09:22)
[2022-09-13] MEDS: ARIPiprazole 2 MG TABLET 3 MG PO (09:22)
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
[2022-09-13] MEDS: cloNIDine HCL 0.1 MG TABLET PO (13:13)
[2022-09-13 13:14] VITALS: BP 118/71; PULSE 79; RESP 18
[2022-09-13] MEDS: hydrOXYzine HCL 50 MG TABLET PO ×2 (14:41→21:18)
[2022-09-13 18:16] VITALS: BP 146/82; PULSE 77; TEMP 36.2
[2022-09-13] MEDS: SUMAtriptan succinate 50 MG TABLET PO (21:18)
[2022-09-14] MEDS: traZODone HCL 100 MG TABLET PO ×2 (02:41→19:36)
[2022-09-14 08:45] VITALS: BP 138/81; PULSE 91; RESP 16; TEMP 37; O2SAT 97
[2022-09-14] MEDS: Acetaminophen 325 MG TABLET 650 MG PO ×2 (09:09→19:35)
[2022-09-14] MEDS: Multivitamin TABLET 1 TAB PO (09:09)
[2022-09-14] MEDS: ARIPiprazole 2 MG TABLET 3 MG PO (09:09)
[2022-09-14] MEDS: Sertraline HCL 50 MG TABLET 150 MG PO (09:10)
[2022-09-14] MEDS: cloNIDine HCL 0.1 MG TABLET PO ×2 (09:10→13:31)
[2022-09-14] MEDS: hydrOXYzine HCL 50 MG TABLET PO ×2 (09:10→19:36)
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
[2022-09-14 13:25] VITALS: BP 125/76; PULSE 81
[2022-09-14 18:33] VITALS: BP 117/75; PULSE 84; TEMP 36.4
[2022-09-14] MEDS: SUMAtriptan succinate 50 MG TABLET PO (19:36)
[2022-09-15] MEDS: traZODone HCL 100 MG TABLET PO ×2 (00:31→21:01)
[2022-09-15 06:00] VITALS: BP 134/78; PULSE 90; RESP 16; TEMP 37; O2SAT 100
[2022-09-15] MEDS: Multivitamin TABLET 1 TAB PO (07:59)
[2022-09-15] MEDS: ARIPiprazole 2 MG TABLET 3 MG PO (07:59)
[2022-09-15] MEDS: Sertraline HCL 50 MG TABLET 150 MG PO (07:59)
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
[2022-09-15 11:50] VITALS: BP 139/81; PULSE 81
[2022-09-15] MEDS: hydrOXYzine HCL 50 MG TABLET PO ×2 (11:58→21:01)
[2022-09-15] MEDS: cloNIDine HCL 0.1 MG TABLET PO ×2 (11:58→21:01)
[2022-09-15 18:00] VITALS: BP 135/86; PULSE 78; RESP 18; TEMP 37; O2SAT 97
[2022-09-15] MEDS: SUMAtriptan succinate 50 MG TABLET PO (21:04)
[2022-09-16] MEDS: traZODone HCL 100 MG TABLET PO ×2 (02:01→19:56)
[2022-09-16 08:38] VITALS: BP 136/74; PULSE 71; RESP 16; TEMP 36.4; O2SAT 100
[2022-09-16] MEDS: Multivitamin TABLET 1 TAB PO (08:40)
[2022-09-16] MEDS: Sertraline HCL 50 MG TABLET 150 MG PO (08:40)
[2022-09-16] MEDS: ARIPiprazole 2 MG TABLET 3 MG PO (08:40)
[2022-09-16] MEDS: Acetaminophen 325 MG TABLET 650 MG PO ×3 (08:57→19:55)
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
[2022-09-16 13:32] VITALS: BP 131/79; PULSE 68
[2022-09-16] MEDS: cloNIDine HCL 0.1 MG TABLET PO ×2 (13:48→19:56)
[2022-09-16 19:50] VITALS: BP 129/76; PULSE 89; TEMP 36.4
[2022-09-16] MEDS: hydrOXYzine HCL 50 MG TABLET PO (19:56)
[2022-09-17] MEDS: traZODone HCL 100 MG TABLET PO ×2 (02:02→20:18)
[2022-09-17 06:00] VITALS: BP 127/73; PULSE 74; RESP 16; TEMP 36.7; O2SAT 100
[2022-09-17] MEDS: ARIPiprazole 2 MG TABLET 3 MG PO (09:49)
[2022-09-17] MEDS: Multivitamin TABLET 1 TAB PO (09:49)
[2022-09-17] MEDS: Sertraline HCL 50 MG TABLET 150 MG PO (09:50)
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
[2022-09-17] MEDS: Acetaminophen 325 MG TABLET 650 MG PO ×2 (10:42→20:18)
[2022-09-17] MEDS: hydrOXYzine HCL 50 MG TABLET PO (14:47)
[2022-09-17 18:47] VITALS: BP 127/80; PULSE 72; TEMP 36.1
[2022-09-17] MEDS: SUMAtriptan succinate 50 MG TABLET PO (19:02)
[2022-09-17 20:15] VITALS: BP 139/82; PULSE 72; TEMP 36.1
[2022-09-17] MEDS: cloNIDine HCL 0.1 MG TABLET PO ×2 (20:17→21:19)
[2022-09-18] MEDS: traZODone HCL 100 MG TABLET PO ×2 (01:45→21:28)
[2022-09-18] MEDS: hydrOXYzine HCL 50 MG TABLET PO (06:56)
[2022-09-18] MEDS: Acetaminophen 325 MG TABLET 650 MG PO (06:56)
[2022-09-18 08:05] VITALS: BP 131/82; PULSE 92; RESP 18; TEMP 35.7; O2SAT 99
[2022-09-18] MEDS: ARIPiprazole 2 MG TABLET 3 MG PO (08:28)
[2022-09-18] MEDS: Multivitamin TABLET 1 TAB PO (08:28)
[2022-09-18] MEDS: Sertraline HCL 50 MG TABLET 150 MG PO (08:29)
[2022-09-18] MEDS: Magnesium Hydrox/Alum Hydrox 30 ML ORAL.SUSP PO (09:37)
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
[2022-09-18] MEDS: cloNIDine HCL 0.1 MG TABLET PO ×2 (11:36→21:26)
[2022-09-18 16:00] VITALS: BP 124/84; PULSE 87; TEMP 36.5; O2SAT 100
[2022-09-18] MEDS: Lithium Carbonate ER 300 MG TABLET.ER PO (21:26)
[2022-09-19] MEDS: traZODone HCL 100 MG TABLET PO ×2 (02:48→20:02)
[2022-09-19 08:00] VITALS: BP 118/73; PULSE 81; RESP 18; TEMP 36.8; O2SAT 100
[2022-09-19] MEDS: Multivitamin TABLET 1 TAB PO (08:18)
[2022-09-19] MEDS: Acetaminophen 325 MG TABLET 650 MG PO (08:18)
[2022-09-19] MEDS: ARIPiprazole 2 MG TABLET 3 MG PO (08:18)
[2022-09-19] MEDS: Sertraline HCL 50 MG TABLET 150 MG PO (08:19)
[2022-09-19] MEDS: hydrOXYzine HCL 50 MG TABLET PO (13:52)
[2022-09-19] MEDS: cloNIDine HCL 0.1 MG TABLET PO ×2 (13:52→20:00)
[2022-09-19 13:58] VITALS: BP 123/75; PULSE 83
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
[2022-09-19 18:00] VITALS: BP 129/85; PULSE 78; TEMP 36.7; O2SAT 100
[2022-09-19] MEDS: Lithium Carbonate ER 300 MG TABLET.ER 600 MG PO (20:01)
[2022-09-19 20:31] LABS: Glucose, Whole Blood 77 mg/dL (60-115)
[2022-09-20] MEDS: traZODone HCL 100 MG TABLET PO ×2 (00:27→20:31)
[2022-09-20 08:05] VITALS: BP 124/70; PULSE 70; RESP 18; TEMP 36; O2SAT 100
[2022-09-20] MEDS: Sertraline HCL 50 MG TABLET 150 MG PO (08:09)
[2022-09-20] MEDS: Multivitamin TABLET 1 TAB PO (08:09)
[2022-09-20] MEDS: ARIPiprazole 2 MG TABLET 3 MG PO (08:10)
[2022-09-20] MEDS: Acetaminophen 325 MG TABLET 650 MG PO ×2 (08:15→20:31)
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
[2022-09-20] MEDS: cloNIDine HCL 0.1 MG TABLET PO ×2 (12:39→20:31)
[2022-09-20] MEDS: hydrOXYzine HCL 50 MG TABLET PO (12:40)
[2022-09-20 20:10] VITALS: BP 123/83; PULSE 98; TEMP 36.7
[2022-09-20] MEDS: Lithium Carbonate ER 300 MG TABLET.ER 600 MG PO (20:31)
[2022-09-21] MEDS: traZODone HCL 100 MG TABLET PO ×2 (00:45→20:05)
[2022-09-21 08:46] VITALS: BP 137/80; PULSE 70; RESP 16; TEMP 36.6; O2SAT 100
[2022-09-21] MEDS: Acetaminophen 325 MG TABLET 650 MG PO ×2 (08:49→14:53)
[2022-09-21] MEDS: ARIPiprazole 2 MG TABLET 3 MG PO (08:50)
[2022-09-21] MEDS: Multivitamin TABLET 1 TAB PO (08:50)
[2022-09-21] MEDS: Sertraline HCL 50 MG TABLET 150 MG PO (08:50)
[2022-09-21] MEDS: cloNIDine HCL 0.1 MG TABLET PO ×2 (14:56→20:05)
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
[2022-09-21] MEDS: Magnesium Hydrox/Alum Hydrox 30 ML ORAL.SUSP PO (18:39)
[2022-09-21 19:51] VITALS: BP 131/82; PULSE 77; TEMP 36.5
[2022-09-21] MEDS: Lithium Carbonate ER 300 MG TABLET.ER 600 MG PO (20:05)
[2022-09-22] MEDS: traZODone HCL 100 MG TABLET PO ×2 (02:44→20:03)
[2022-09-22] MEDS: Acetaminophen 325 MG TABLET 650 MG PO ×2 (02:44→08:46)
[2022-09-22 08:30] VITALS: BP 117/74; PULSE 76; RESP 16; TEMP 36.6; O2SAT 97
[2022-09-22] MEDS: ARIPiprazole 2 MG TABLET 3 MG PO (08:46)
[2022-09-22] MEDS: Sertraline HCL 50 MG TABLET 150 MG PO (08:47)
[2022-09-22] MEDS: Multivitamin TABLET 1 TAB PO (08:47)
[2022-09-22 08:51] LABS: Lithium 0.51 mmol/L (0.60-1.20)
[2022-09-22 09:05] LABS: Anion Gap 12 (12-20); Blood Urea Nitrogen 7 mg/dL (9-16); Calcium 10.1 mg/dL (8.4-10.2); Carbon Dioxide 24 mmol/L (22-29); Chloride 107 mmol/L (96-108); Creatinine Clr Calc Pharmacy 75.1; Estimated Glomerular Filt Rate > 60; Glucose Random 95 mg/dL (60-115); Potassium 3.8 mmol/L (3.3-5.1); Sodium 139 mmol/L (135-145)
[2022-09-22 09:21] LABS: TSH reflex Free T4 1.56 uIU/mL (0.32-4.0)
[2022-09-22] MEDS: cloNIDine HCL 0.1 MG TABLET PO ×2 (11:59→20:03)
[2022-09-22] MEDS: hydrOXYzine HCL 50 MG TABLET PO (11:59)
[2022-09-22 14:06] LABS: Appearance Urine Clear; Color Urine Yellow; Glucose Urine UA Negative (Negative); Leukocyte Esterase Urine Negative (Negative); Nitrite Urine Negative (Negative); Specific Gravity - Urine 1.015 (1.005-1.025); Urine Blood Negative (Negative); Urine Ketones Negative (Negative); Urine Protein Negative (Neg-Trace)
[2022-09-22 14:09] LABS: Bacteria Urine None Seen (None Seen); Hyaline Casts Urine 0-2 /LPF (0-2); WBC Urine 0-5 /HPF (0-5)
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
[2022-09-22 19:55] VITALS: BP 116/87; PULSE 86; TEMP 36.4
[2022-09-22] MEDS: Lithium Carbonate ER 300 MG TABLET.ER 600 MG PO (20:03)
[2022-09-23] MEDS: Acetaminophen 325 MG TABLET 650 MG PO ×3 (02:18→16:29)
[2022-09-23] MEDS: Cyclobenzaprine HCl 10 MG TABLET PO ×2 (02:18→08:49)
[2022-09-23] MEDS: traZODone HCL 100 MG TABLET PO ×2 (02:18→21:28)
[2022-09-23 08:35] VITALS: BP 114/66; PULSE 83; RESP 18; TEMP 36.6; O2SAT 100
[2022-09-23] MEDS: Sertraline HCL 50 MG TABLET 150 MG PO (08:48)
[2022-09-23] MEDS: ARIPiprazole 2 MG TABLET 3 MG PO (08:48)
[2022-09-23] MEDS: Multivitamin TABLET 1 TAB PO (08:49)
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
[2022-09-23] MEDS: Baclofen 20 MG TABLET PO ×2 (14:09→21:27)
[2022-09-23] MEDS: hydrOXYzine HCL 50 MG TABLET PO (16:29)
[2022-09-23] MEDS: Lidocaine 4 % Patch ADH..PATCH 2 PATCH TRANSDERMA (17:49)
[2022-09-23] MEDS: methocarbamoL 500 MG TABLET PO (18:09)
--- NOTE | 2022-09-23 20:21 | PC.NURSE ---
Patient continues to have 2 or more panic attacks every day. Per the patient, there is no pattern that she is able to discern. She would like provider to know.
--- NOTE | 2022-09-23 20:23 | PC.NURSE ---
Patient mentioned that the Robaxin was helpful for her back spasms.
[2022-09-23 21:15] VITALS: BP 122/85; PULSE 83; TEMP 36.3; O2SAT 100
[2022-09-23] MEDS: cloNIDine HCL 0.1 MG TABLET PO (21:27)
[2022-09-23] MEDS: Lithium Carbonate ER 300 MG TABLET.ER 600 MG PO (21:28)
[2022-09-24] MEDS: traZODone HCL 100 MG TABLET PO (01:58)
[2022-09-24] MEDS: hydrOXYzine HCL 50 MG TABLET PO ×2 (01:58→14:40)
[2022-09-24] MEDS: Baclofen 20 MG TABLET PO (06:06)
[2022-09-24] MEDS: cloNIDine HCL 0.1 MG TABLET PO ×3 (06:06→19:59)
[2022-09-24] MEDS: Lidocaine 4 % Patch ADH..PATCH 2 PATCH TRANSDERMA (06:07)
[2022-09-24 07:18] LABS: Lithium 0.63 mmol/L (0.60-1.20)
[2022-09-24 07:27] LABS: Anion Gap 12 (12-20); Blood Urea Nitrogen 8 mg/dL (9-16); Calcium 9.2 mg/dL (8.4-10.2); Carbon Dioxide 23 mmol/L (22-29); Chloride 107 mmol/L (96-108); Creatinine Clr Calc Pharmacy 75.1; Estimated Glomerular Filt Rate > 60; Glucose Random 99 mg/dL (60-115); Potassium 4.3 mmol/L (3.3-5.1); Sodium 138 mmol/L (135-145)
[2022-09-24 07:43] LABS: TSH reflex Free T4 1.38 uIU/mL (0.32-4.0)
[2022-09-24 08:10] VITALS: BP 133/81; PULSE 99; RESP 18; TEMP 36; O2SAT 99
[2022-09-24] MEDS: ARIPiprazole 2 MG TABLET 3 MG PO (08:17)
[2022-09-24] MEDS: Sertraline HCL 50 MG TABLET 150 MG PO (08:17)
[2022-09-24] MEDS: Acetaminophen 325 MG TABLET 650 MG PO (08:18)
[2022-09-24] MEDS: Multivitamin TABLET 1 TAB PO (08:18)
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
[2022-09-24] MEDS: Sertraline HCL 50 MG TABLET PO (13:12)
[2022-09-24] MEDS: methocarbamoL 500 MG TABLET PO (16:03)
[2022-09-24 16:21] VITALS: BP 116/63; PULSE 92; TEMP 36.3; O2SAT 99
[2022-09-24] MEDS: Lithium Carbonate ER 300 MG TABLET.ER 600 MG PO (19:59)
[2022-09-25] MEDS: cloNIDine HCL 0.1 MG TABLET PO ×3 (01:06→19:41)
[2022-09-25] MEDS: hydrOXYzine HCL 50 MG TABLET PO ×3 (01:07→16:26)
[2022-09-25] MEDS: traZODone HCL 100 MG TABLET PO ×2 (01:07→19:41)
[2022-09-25] MEDS: methocarbamoL 500 MG TABLET PO ×2 (01:13→19:41)
[2022-09-25] MEDS: Acetaminophen 325 MG TABLET 650 MG PO ×2 (01:13→08:36)
[2022-09-25] MEDS: Lidocaine 4 % Patch ADH..PATCH 2 PATCH TRANSDERMA ×2 (04:26→11:10)
[2022-09-25] MEDS: Multivitamin TABLET 1 TAB PO (08:36)
[2022-09-25] MEDS: ARIPiprazole 2 MG TABLET 3 MG PO (08:36)
[2022-09-25] MEDS: Sertraline HCL 100 MG TABLET 200 MG PO (08:36)
[2022-09-25 08:46] VITALS: BP 124/77; PULSE 74; RESP 16; TEMP 36.8; O2SAT 100
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
[2022-09-25 19:40] VITALS: BP 120/73; PULSE 80; TEMP 36.6; O2SAT 99
[2022-09-25] MEDS: Lithium Carbonate ER 300 MG TABLET.ER 600 MG PO (19:41)
[2022-09-26] MEDS: traZODone HCL 100 MG TABLET PO ×2 (00:24→20:05)
[2022-09-26] MEDS: cloNIDine HCL 0.1 MG TABLET PO ×4 (00:26→19:07)
[2022-09-26] MEDS: methocarbamoL 500 MG TABLET PO ×2 (05:33→15:46)
[2022-09-26] MEDS: Lidocaine 4 % Patch ADH..PATCH 2 PATCH TRANSDERMA (05:33)
[2022-09-26 06:00] VITALS: BP 108/67; PULSE 76; RESP 20; TEMP 36.7; O2SAT 100
[2022-09-26] MEDS: Acetaminophen 325 MG TABLET 650 MG PO ×2 (08:46→17:25)
[2022-09-26] MEDS: Sertraline HCL 100 MG TABLET 200 MG PO (08:46)
[2022-09-26] MEDS: ARIPiprazole 2 MG TABLET 3 MG PO (08:47)
[2022-09-26] MEDS: Multivitamin TABLET 1 TAB PO (08:47)
[2022-09-26] MEDS: hydrOXYzine HCL 50 MG TABLET PO ×2 (08:56→19:07)
--- NOTE | 2022-09-26 13:19 | PC.NURSE ---
pt reports clonidine and hydroxyzine have not been working as well as the past to treat her anxiety. Pt voiced interest in trying new medication but could not say what would be helpful. Nurse reached out to provider w/ pt concerns. Provider reported they were not comfortable prescribing a benzodiazepine due to ptsd diagnosis and opted to prescribe seroquel. pt refused to take seroquel because it caused me to blow up in the past (weight gain). pt elected to take prn clonidine. provider made aware.
[2022-09-26] MEDS: QUEtiapine Fumarate 25 MG TABLET PO (15:46)
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
[2022-09-26 19:05] VITALS: BP 118/69; PULSE 87; RESP 16; TEMP 36.1; O2SAT 99
[2022-09-26] MEDS: Lithium Carbonate ER 300 MG TABLET.ER 600 MG PO (20:05)
[2022-09-27] MEDS: traZODone HCL 100 MG TABLET PO ×2 (00:53→20:06)
[2022-09-27] MEDS: ARIPiprazole 2 MG TABLET 3 MG PO (09:09)
[2022-09-27] MEDS: Multivitamin TABLET 1 TAB PO (09:09)
[2022-09-27] MEDS: methocarbamoL 500 MG TABLET PO ×2 (09:09→16:36)
[2022-09-27] MEDS: Sertraline HCL 100 MG TABLET 200 MG PO (09:09)
[2022-09-27] MEDS: QUEtiapine Fumarate 25 MG TABLET PO ×2 (09:09→11:23)
[2022-09-27] MEDS: Lidocaine 4 % Patch ADH..PATCH 2 PATCH TRANSDERMA (09:10)
[2022-09-27 09:55] VITALS: BP 126/84; PULSE 78; RESP 16; TEMP 36.2; O2SAT 97
[2022-09-27] MEDS: hydrOXYzine HCL 50 MG TABLET PO ×2 (10:40→16:38)
[2022-09-27] MEDS: cloNIDine HCL 0.1 MG TABLET PO ×3 (10:40→20:06)
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
[2022-09-27] MEDS: SUMAtriptan succinate 50 MG TABLET PO (16:36)
[2022-09-27 16:37] VITALS: BP 112/69; PULSE 83; TEMP 36.3
[2022-09-27 19:52] VITALS: BP 120/71; PULSE 89; TEMP 36.4
[2022-09-27] MEDS: Lithium Carbonate ER 300 MG TABLET.ER 600 MG PO (20:06)
[2022-09-27] MEDS: Acetaminophen 325 MG TABLET 650 MG PO (20:06)
[2022-09-28] MEDS: traZODone HCL 100 MG TABLET PO (00:29)
[2022-09-28 06:00] VITALS: BP 122/67; PULSE 77; RESP 16
[2022-09-28] MEDS: ARIPiprazole 2 MG TABLET 3 MG PO (08:08)
[2022-09-28] MEDS: Multivitamin TABLET 1 TAB PO (08:08)
[2022-09-28] MEDS: Sertraline HCL 100 MG TABLET 200 MG PO (08:08)
[2022-09-28] MEDS: Lidocaine 4 % Patch ADH..PATCH 2 PATCH TRANSDERMA (08:44)
[2022-09-28] MEDS: methocarbamoL 500 MG TABLET PO (08:44)
--- NOTE | 2022-09-28 10:16 | PM.PSYDC ---
DS: Providers Provider Date of Service: 09/28/22 Date of admission: 09/08/22 18:29 Date of discharge: 09/28/22 Primary care physician: Kimberly Physician Attending physician on admission: Federico Lynn Attending physician on discharge: Federico Lynn DS: Diagnosis Discharge Diagnosis (1) Chronic post-traumatic stress disorder (PTSD): Status: Acute (2) MDD (major depressive disorder), recurrent severe, without psychosis: Status: Acute (3) Borderline personality disorder: Status: Suspected DS: Medications Discharge Medications Home Medications: Previous Rx's Medication Instructions Recorded aripiprazole 2 mg tablet (Abilify) 2 mg PO DAILY 30 days #30 tabs 08/25/22 clonidine HCl 0.1 mg tablet 0.1 mg PO Q4H PRN anxiety/insomnia 08/25/22 30 days #90 tabs gabapentin 300 mg capsule 300 mg PO TID 30 days #90 caps 08/25/22 hydroxyzine HCl 25 mg tablet 25 mg PO Q6H PRN Anxiety 30 days 08/25/22 #90 tabs sertraline 100 mg tablet 100 mg PO DAILY 30 days #30 tabs 08/25/22 sumatriptan succinate 50 mg tablet 50 mg PO DAILY MRX1 PRN Migraine 08/25/22 Headache 30 days #8 tabs trazodone 100 mg tablet 100 mg PO BEDTIME PRN Insomnia 30 08/25/22 days #30 tabs Mental Status Exam Mental Status Exam Narrative: Pt is alert and oriented; behavior is calm, cooperative, talking freely; patient is not in distress; dressed in casual attire, adequately groomed; mood is described as anxious and affect congruent; eye contact appropriate; Speech is normal rate, volume and prosody and not pressured; no psychomotor retardation present; thought process is goal directed and organized; Thought content on dealing with emotions, anxiety over discharge; otherwise pertinent to relevant topics and without any delusional content, paranoid ideations or grandiosity; no SI; no HI; there is no evidence of perceptual disturbance. Patients insight and judgment fair and at baseline. Data Data Completed and Pending Completed studies during hospitalization [Text1]: 09/22/22 09/22/22 09/22/22 08:29 08:29 13:34 Sodium 139 Potassium 3.8 Chloride 107 Carbon Dioxide 24 Anion Gap 12 BUN 7 L Creatinine 0.75 Estim Creat Clear Calc 75.1 Estimated GFR > 60 Random Glucose 95 Calcium 10.1 D TSH 1.56 Urine Color Yellow Urine Appearance Clear Urine pH 6.0 Ur Specific [place] 1.015 Urine Protein Negative Urine Glucose (UA) Negative Urine Ketones Negative Urine Blood Negative Urine Nitrite Negative Ur Leukocyte Esterase Negative Urine RBC 3-5 H Urine WBC 0-5 Ur Squamous Epith Cells 3-5 Urine Bacteria None Seen Hyaline Casts 0-2 [place] 0.51 L 09/24/22 09/24/22 06:49 06:49 Sodium 138 Potassium 4.3 Chloride 107 Carbon Dioxide 23 Anion Gap 12 BUN 8 L Creatinine 0.75 Estim Creat Clear Calc 75.1 Estimated GFR > 60 Random Glucose 99 Calcium 9.2 D TSH 1.38 Urine Color Urine Appearance Urine pH Ur Specific [place] Urine Protein Urine Glucose (UA) Urine Ketones Urine Blood Urine Nitrite Ur Leukocyte Esterase Urine RBC Urine WBC Ur Squamous Epith Cells Urine Bacteria Hyaline Casts [place] 0.63 09/08/22 Unknown Urine clean catch - Urine lucas top Urine Culture - Final DS: Summary Hospital Course Hospital Course: 47 yo female, history of PTSD, Borderline traits, Depression, Cannabis Use Disorder, recently discharged from discharge however, did not make it to outpt appointments, decompenstated and engaged in self harm and devellped with SI. Hospital course: Patient was continued on her home medications however over the course of this admission, her sertraline was increased to 200 mg and she was eventually started on lithium, which she had been on before and was effective this admission as well (pt wanted to remain on abilify feeling it helped with tics). Throughout her admission, she was engaged in treatment, attending all groups. Patient continued to intermittently struggle with anxiety and PTSD symptoms however she remained safe and with appropriate behaviors and impulse control on the unit throughout her stay. Intermittently, SI and self-harming urges would return however they quickly resolved on their own. Patient got along well with peers and was feeling as though she were doing better however whenever she approached discharge, she became very anxious again, would say she was unsafe and not ready to discharge. However this is a part of patient's baseline. At 1 point patient asked to stay for another 7 days; property underwriter and team discussed this and were able to get an additional 5 days for her stay, however when this was explained, patient said if she is unable to stay for 7 days then she might as well just discharge immediately and reported feeling rejected and unhelped by staff; staff splitting occurred as well. While patient was able to acknowledge she had a long history of feeling rejected, marginalized or uncared for, she struggled to understand how these past feelings were getting misapplied to her present situations. Patient has very supportive was present throughout her time on the unit and agreed that she was safe for discharge despite her chronic feelings of being rejected. Team agreed that patient's symptoms and struggles will be best treated by consistent 1 on 1 outpatient therapy; thus, team agreed to have patient stay on the unit longer in order to be discharged directly to her outpatient appointment in order to help establish this of vital component to her treatment plan. As discharge approached patient became selectively mute which her reported happens from time to time and is a part of her baseline. Treatment team continued to agree that patient had derived the maximum benefit that hospitalization could confer and that further stay on the unit would not be beneficial (and given her illness, likely counterproductive); rather, continued treatment for her symptoms necessitates consistent outpatient therapy where she can more pointedly and over time, process through her history of trauma and its effects. Though anxious, patient remained at baseline and accepted discharge plans; by day of discharge she was no longer selectively mute but conversing freely. Given the chronic nature of patient's struggles, she remains vulnerable to decompensation and will very likely continue to intermittently struggle with SI and self-harming urges however she is typically able to cope with these, and has for years in the community and has also demonstrated an ability and willingness to reach out for help when she is feeling unsafe. Patient is not in imminent risk for harm to self or others and appropriate for discharge. c/o sore throat and right ear pain on day of discharge; examined throat and there was a little erythema but no exudate; otoscope right ear exam unremarkable; strep A/RSV/flu A/B/COVID all negative Time spent discussing smoking cessation with patient: 3 to 10 minutes Status at Discharge Functional status at discharge: independent ambulation Overall status at discharge: patient is back to baseline Time Spent with Patient Time attestation: Total time managing care of this patient today ____ minutes. Time spent: Less than 30 minutes Discharge Plan Discharge Anticipated Discharge Date/Time: 09/28/22 13:00 Patient Disposition: Home, Self-Care Discharge Diagnosis: PTSD, chronic with acute exacerbation Referrals: [facility] Intake Zoie Ruben [Other] - 09/28/22 2:00 pm (During this intake request case management. ) [facility] Psyche Eval Yvonne Ames [Other] - 10/25/22 1:00 pm (Telehealth) [facility] Med Dipak Ames [Other] - 11/22/22 1:00 pm (Telehealth) [facility] [employer] 2Nd Shift Jie Santiago [Other] - 3-5 Days (Jie is a support person through your insurance. Reach out to her to introduce yourself. ) [facility] [employer] [Other] - 1 Week (Through your insurance you are eligible to have free ride services. They will need minimum of 24 hours notice for services. You will need to give them your insurance id number each time. ) [facility] [Other] - 1 Week (Walk-In Clinic) Physician,None [Primary Care Provider] - 1 Week Discharge Medications: New methocarbamol 500 mg Tablet 500 mg PO BID PRN (Reason: muscle spasm) 30 Days Qty: 60 0RF sertraline 100 mg Tablet 200 mg PO DAILY 30 Days Qty: 60 1RF quetiapine 50 mg Tablet 50 mg PO Q6H PRN (Reason: anxiety) 30 Days Qty: 60 1RF lithium carbonate 300 mg Tablet Extended Release 600 mg PO BEDTIME 30 Days Qty: 60 0RF aripiprazole [Abilify] 2 mg Tablet 3 mg PO DAILY 30 Days Qty: 45 1RF lidocaine [Lidocaine Pain Relief] 4 % Adhesive Patch,Medicated 2 patch transdermal DAILY PRN (Reason: back pain) 30 Days Qty: 60 1RF Protocol: Apply to: Apply to: mid and lower back multivitamin [Daily-Vernell] Tablet 1 tab PO DAILY 30 Days Qty: 30 1RF Continued sumatriptan succinate 50 mg Tablet 50 mg PO DAILY MRX1 PRN (Reason: Migraine Headache) 30 Days Qty: 8 1RF trazodone 100 mg Tablet 100 mg PO BEDTIME PRN (Reason: Insomnia) 30 Days Qty: 30 1RF clonidine HCl 0.1 mg Tablet 0.1 mg PO Q4H PRN (Reason: anxiety/insomnia) 30 Days Qty: 90 0RF Protocol: Hold for SBP< HOLD for SBP < : 90 Changed hydroxyzine HCl 50 mg tablet 50 mg PO TID PRN (Reason: anxiety) 30 Days Qty: 60 1RF Discontinued aripiprazole [Abilify] 2 mg Tablet 2 mg PO DAILY 30 Days Qty: 30 1RF gabapentin 300 mg Capsule 300 mg PO TID 30 Days Qty: 90 1RF Patient Comments: Patient states she no longer takes medications sertraline 100 mg Tablet 100 mg PO DAILY 30 Days Qty: 30 1RF Discharge Orders: Discharge Order (Routine); Ordered 09/28/22 Ordered By: Federico Lynn Diet: Regular diet Activity on Discharge: As tolerated Stand Alone Forms: Patient Portal Discharge page, Community Support Care Plan Goals: Maintain mood and safe behaviors Take medications as prescribed Practice coping skills Continue with outpatient providers and reach out to them as needed Health Concerns: Mood stability and behaviors Scoliosis Plan of Treatment: Follow up with your PCP, psychiatric provider and other outpatient providers regarding above concerns Take medications as prescribed Assessment: Risk assessment at time of discharge:? Patient was interviewed prior to discharge and found to be fully oriented and without any SI or HI. Patient has insight and demonstrates good judgment in terms of wanting to pursue treatment. Patient is not in imminent risk of harm to self or others and has a safety plan that includes presenting to the closest ER or calling 911 if feeling unsafe.? Patient has been observed closely by nursing and unit staff throughout admission; patient has not engaged in any behaviors that suggest dangerousness to self or others and has demonstrated appropriate behaviors and impulse control Discharge Date/Time: 09/28/22 13:25
[2022-09-28 12:23] LABS: Strep A Nucleic Acid Negative (Negative)
[2022-09-28 12:35] LABS: Influenza A PCR NEGATIVE (Negative); Influenza B PCR NEGATIVE (Negative); Resp Syncy Virus RNA Qual PCR NEGATIVE (Negative); SARS COV2 PCR INHOUSE NEGATIVE (Negative)
[2022-09-28] MEDS: QUEtiapine Fumarate 50 MG TABLET PO (13:00)
[2022-09-28] MEDS: hydrOXYzine HCL 50 MG TABLET PO (13:01)
== END 2022-09-28 13:25 | disposition home or self-care (01) | DRG 885 ==
LOC: HO.ED 16:33 → HO.PM5 18:34
PROVIDERS: Clinical Nurse Specialist Psychiatric/Mental Health, Adult; Admitting Provider Psychiatry & Neurology Psychiatry; Emergency Provider Emergency Medicine Emergency Medical Services; Visit Provider Psychiatry & Neurology Psychiatry
DX: F33.2 Major depressive disorder, recurrent severe without psychotic features (principal); R45.851 Suicidal ideations; F43.12 Post-traumatic stress disorder, chronic; E11.9 Type 2 diabetes mellitus without complications; F60.3 Borderline personality disorder; F12.10 Cannabis abuse, uncomplicated; Z91.148 Patient's other noncompliance with medication regimen for other reason; M62.830 Muscle spasm of back; Z91.199 Patient's noncompliance with other medical treatment and regimen due to unspecified reason; Z20.822 Contact with and (suspected) exposure to COVID-19; Z59.01 Sheltered homelessness; Z91.52 Personal history of nonsuicidal self-harm; Z87.891 Personal history of nicotine dependence; Z79.899 Other long term (current) drug therapy
CPT/HCPCS: 0241U; 36415; 80048; 80053; 80061; 80143; 80178; 80179; 80307; 81001; 81025; 82607; 82746; 82947; 83036; 83540; 83735; 84439; 84443; 85025; 87086; 87635; 87651; 99285; S9485

== ENCOUNTER → 2022-09-08 18:29 | Outpatient (BNV) | payer OTHER, SELFPAY | PROVIDERS: Admitting Provider Psychiatry & Neurology Psychiatry; Emergency Provider Emergency Medicine Emergency Medical Services; Visit Provider Clinical Nurse Specialist Psychiatric/Mental Health, Adult | DX: F43.12 Post-traumatic stress disorder, chronic (principal); F33.2 Major depressive disorder, recurrent severe without psychotic features; F60.3 Borderline personality disorder | CPT/HCPCS: 90792; 99231; 99232; 99239 ==

== ENCOUNTER 2022-09-29 11:24 | Inpatient (IN) | payer OTHER, SELFPAY ==
[2022-09-29 11:28] VITALS: BP 128/91; BP 146/92; PULSE 88; PULSE 96; RESP 18; TEMP 37.3; O2SAT 100; BMI 19.5
--- NOTE | 2022-09-29 11:45 | ECG_ITS ---
Test Reason : CHECK QT INTERVAL Blood Pressure : / mmHG Vent. Rate : 081 BPM Atrial Rate : 081 BPM P-R Int : 148 ms QRS Dur : 098 ms QT Int : 362 ms P-R-T Axes : 067 031 031 degrees QTc Int : 420 ms Normal sinus rhythm Incomplete right bundle branch block Borderline ECG No previous ECGs available Referred By: Yesenia Rice Electronically Signed By:Des Bejarano
[2022-09-29 12:44] LABS: Basophils Absolute Auto 0.1 X10*3/uL (0.0-0.2); Basophils Percent Auto 0.7 % (0-2); Eosinophils Absolute Auto 0.2 X10*3/uL (0.0-0.4); Eosinophils Percent Auto 2.3 % (0-4); Hematocrit 33.1 % (37.0-47.0); Hemoglobin 11.3 g/dl (12.0-16.0); Imm Gran Abs Auto 0.04 X10*3/uL (0.00-0.03); Imm Gran Pct Auto 0.6 % (0.0-0.4); Lymphocytes Absolute Auto 1.7 X10*3/uL (1.2-4.9); Lymphocytes Percent Auto 24.6 % (20-40); MANUAL DIFF FLAG NO; Mean Corpuscular HGB Conc 34.1 g/dl (31.0-35.0); Mean Corpuscular Hemoglobin 30.1 pg (27.0-33.0); Mean Corpuscular Volume 88.3 fL (80.0-98.0); Mean Platelet Volume 9.8 fL (9.4-12.3); Monocytes Absolute Auto 0.5 X10*3/uL (0.1-1.2); Monocytes Percent Auto 7.2 % (2-11); Neutrophils Absolute Auto 4.4 x10*3/uL (2.0-8.3); Neutrophils Percent Auto 64.6 % (45-73); Platelet Count 193 X10*3/uL (160-400); Red Blood Count 3.75 X10*6/uL (4.20-5.50); Red Cell Distribution Width 12.7 % (11.0-16.0); White Blood Count 6.8 X10*3/uL (4.8-10.8)
[2022-09-29 12:57] LABS: Appearance Urine Hazy; Color Urine Yellow; Glucose Urine UA Negative (Negative); Leukocyte Esterase Urine Moderate (2+) (Negative); Nitrite Urine Negative (Negative); PH 7.5 (5.0-9.0); UMIC TRIGGER UA YES; Urine Blood Negative (Negative); Urine Ketones Trace mg/dL (Negative); Urine Protein Negative (Neg-Trace)
[2022-09-29 13:00] LABS: UPreg QC Valid YES; Urine Pregnancy NEGATIVE (NEGATIVE)
[2022-09-29 13:01] LABS: Anion Gap 11 (12-20)
[2022-09-29 13:04] LABS: Bacteria Urine 1+ (None Seen); RBC Urine 0-2 /HPF (0-2)
[2022-09-29 13:08] LABS: Acetaminophen LAB < 17 mcg/mL (<30); Salicylate < 5.0 mg/dL (15-30)
[2022-09-29 13:11] LABS: COVID-19 Test Negative (Negative); IDNOW Serial# 55D5AD1C
[2022-09-29 13:13] LABS: Alanine Aminotransferase 27 U/L (0-31); Albumin Level 3.5 g/dL (3.5-5.0); Alkaline Phosphatase 61 U/L (39-117); Aspartate Amino Transferase 29 U/L (5-31); Bilirubin Total 0.4 mg/dL (0.0-1.0); Blood Urea Nitrogen 7 mg/dL (9-16); Carbon Dioxide 27 mmol/L (22-29); Chloride 101 mmol/L (96-108); Estimated Glomerular Filt Rate > 60; Ethanol < 10 mg/dL; Glucose Random 104 mg/dL (60-115); Potassium 4.5 mmol/L (3.3-5.1); Sodium 134 mmol/L (135-145); Total Protein 6.4 g/dL (6.5-8.0)
[2022-09-29 14:29] LABS: Amphetamine Screen Urine Not Detected (Not Detect); Barbiturates, Urine Not Detected (Not Detect); Benzodiazepines Screen Urine Not Detected (Not Detect); Cannabinoid Screen Urine POSITIVE (Not Detect); Cocaine Screen Urine Not Detected (Not Detect); Fentanyl, urine Not Detected (Not Detect); Opiate Screen Urine Not Detected (Not Detect); Phencyclidine Screen Urine Not Detected (Not Detect)
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
[2022-09-29] MEDS: Acetaminophen 325 MG TABLET 975 MG PO (18:36)
[2022-09-29] MEDS: Ondansetron ODT 4 MG TAB.RAPDIS TRANSLINGU (18:36)
[2022-09-29] MEDS: Lithium Carbonate ER 300 MG TABLET.ER 600 MG PO (21:22)
[2022-09-29 22:32] VITALS: BP 152/86; PULSE 85; RESP 16; TEMP 36.9; O2SAT 98
[2022-09-29] MEDS: traZODone HCL 100 MG TABLET PO (22:56)
--- NOTE | 2022-09-29 23:43 | PC.ADMIT ---
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 LEGAL STATUS: CONDITIONAL VOLUNTARY. PT WAS DISCHARGED FROM THIS UNIT ON 09/28/22 AFTER BEING HOSPITALIZED SINCE 09/08/22. PT WAS DISCHARGED AND IMMEDIATELY WENT TO HER INTAKE APPT AT [facility]. PT STATED SHE COMPLETED HER INTAKE AND WENT TO [place] WHERE HER AND HER SPOUSE HAVE BEEN STAYING AND HER CALLED CRISIS DUE TO PTS DEPRESSED MOOD AND SI W/ A PLAN TO OVERDOSE [place] PILLS [place]. PT STATES SHE DID NOT FEEL READY FOR DISCHARGE ON 09/28/22 AND VERBALIZED THIS. PT WAS TEARFUL AND APPEARED ANXIOUS THROUGHOUT THE ADMISSION PROCESS AND WAS EYE CONTACT AVOIDANT. LEGALS SIGNED, SAFETY TOOL AND TX PLAN COMPLETED. PROMOTE SAFETY AND BEGIN TREATMENT PLAN.
--- NOTE | 2022-09-30 00:44 | MHC.CARE ---
CARE Team received auth for this pt. Auth number [id number]. Next review date 10/03/22. For review please call Isabella marte [phone].
[2022-09-30] MEDS: methocarbamoL 500 MG TABLET PO ×2 (02:56→18:30)
[2022-09-30] MEDS: SUMAtriptan succinate 50 MG TABLET PO (02:56)
[2022-09-30 08:15] VITALS: BP 148/80; PULSE 65; RESP 18; TEMP 36.4; O2SAT 99
[2022-09-30 08:30] LABS: Estimated Average Glucose 97 mg/dL
[2022-09-30 08:58] LABS: Alanine Aminotransferase 26 U/L (0-31); Albumin Level 3.6 g/dL (3.5-5.0); Alkaline Phosphatase 58 U/L (39-117); Anion Gap 12 (12-20); Aspartate Amino Transferase 25 U/L (5-31); Bilirubin Total 0.6 mg/dL (0.0-1.0); Blood Urea Nitrogen 5 mg/dL (9-16); Calcium 9.1 mg/dL (8.4-10.2); Carbon Dioxide 22 mmol/L (22-29); Chloride 108 mmol/L (96-108); Cholesterol 171 mg/dL; Creatinine Clr Calc Pharmacy 69.5; Estimated Glomerular Filt Rate > 60; Glucose Fasting 82 mg/dL (60-99); HDL Cholesterol 74 mg/dL; LDL Cholesterol Calculated 83 mg/dl; Sodium 138 mmol/L (135-145); Triglycerides 74 mg/dL
[2022-09-30 08:59] LABS: Thyroid Stimulating Hormone 3.61 uIU/mL (0.32-4.0)
[2022-09-30] MEDS: ARIPiprazole 2 MG TABLET 3 MG PO (09:06)
[2022-09-30] MEDS: Multivitamin TABLET 1 TAB PO (09:06)
[2022-09-30] MEDS: Sertraline HCL 100 MG TABLET 200 MG PO (09:07)
[2022-09-30] MEDS: Lidocaine 4 % Patch ADH..PATCH 2 PATCH TRANSDERMA (09:09)
[2022-09-30 09:14] LABS: Folate 17.3 ng/mL (> or = 4.0); Vitamin B12 701 pg/mL (200-900)
[2022-09-30] MEDS: QUEtiapine Fumarate 50 MG TABLET PO (12:03)
[2022-09-30] MEDS: hydrOXYzine HCL 50 MG TABLET PO ×2 (14:33→20:32)
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
[2022-09-30 18:25] VITALS: BP 136/84; PULSE 89; TEMP 36.6
[2022-09-30] MEDS: cloNIDine HCL 0.1 MG TABLET PO (18:30)
[2022-09-30] MEDS: Acetaminophen 325 MG TABLET 650 MG PO (18:30)
[2022-09-30] MEDS: Lithium Carbonate ER 300 MG TABLET.ER 600 MG PO (20:32)
[2022-09-30] MEDS: Melatonin 3 MG TABLET 6 MG PO (20:33)
[2022-09-30] MEDS: traZODone HCL 100 MG TABLET PO (20:33)
[2022-09-30] MEDS: traZODone HCL 50 MG TABLET PO (23:44)
[2022-10-01 09:36] VITALS: BP 132/88; PULSE 91; RESP 16; TEMP 36.8; O2SAT 100
[2022-10-01] MEDS: Multivitamin TABLET 1 TAB PO (09:41)
[2022-10-01] MEDS: Sertraline HCL 100 MG TABLET 200 MG PO (09:42)
[2022-10-01] MEDS: ARIPiprazole 5 MG TABLET PO (09:42)
--- NOTE | 2022-10-01 10:54 | P.PNPSI_ITS ---
Subjective Subjective Date of Service: 10/01/22 Reason For Visit: SI Interim History: Patient says she isn't doing well. She is anxious. She couldn't sleep last night. When she finally fell asleep she had nightmares. She reports she feels irritable. She continues depressed. Denies active SI while on the unit. Visible on the unit. Appetite OK. Review of Systems Review of Systems SI Yes all other systems are reviewed and are negative Mental Status Exam Mental Status Exam Patient Appearance: Appropriate Patient Orientation: Person, Place, Time and Situation Level of Consciousness: Awake and Alert Patient Behavior: Cooperative, Anxious and Good Eye Contact Mood Description: Constricted, Depressed, Anxious and Sad Affect Description: Anxious, Angry and Sad Ability to Follow Directions: Good Speech Pattern: Clear Memory Description: Intact Hallucinations: None Thought Content: positive for Obsessional Thoughts Depressive Symptoms: Increased Anxiety, Insomnia, Increased Irritability, Difficulty Sleeping, Feelings of Worthlessness and Hopelessness Judgement: Fair Diagnostics Vital Signs (24Hr): Vital Signs - 24 hr 09/30/22 18:25 10/01/22 09:36 Temperature 97.8 F 98.3 F Pulse Rate 89 91 Respiratory Rate 16 Blood Pressure 136/84 132/88 Pulse Oximetry 100 Oxygen Delivery Method Room Air BMI result Body Mass Index 19.5 Labs 09/29/22 12:33 09/30/22 08:09 Labs: Laboratory Results - last 48 hr 09/29/22 09/29/22 09/29/22 11:49 11:49 12:14 WBC RBC Hgb Hct MCV MCH MCHC RDW Plt Count MPV Immature Gran % (Auto) Neut % (Auto) Lymph % (Auto) [place] % (Auto) Eos % (Auto) Baso % (Auto) Lymph # (Auto) [place] # (Auto) Eos # (Auto) Baso # (Auto) Abs Immat Gran (auto) Absolute Neuts (auto) Absolute Nucleated RBC Nucleated RBC % (auto) Sodium Potassium Chloride Carbon Dioxide Anion Gap BUN Creatinine Estim Creat Clear Calc Estimated GFR Random Glucose Fasting Glucose Estimat Average Glucose Hemoglobin A1c % Calcium Total Bilirubin AST ALT Alkaline Phosphatase Total Protein Albumin Triglycerides Cholesterol LDL Cholesterol, Calc HDL Cholesterol Vitamin B12 Folate TSH Urine Color Yellow Urine Appearance Hazy Urine pH 7.5 Ur Specific [place] 1.010 Urine Protein Negative Urine Glucose (UA) Negative Urine Ketones Trace Urine Blood Negative Urine Nitrite Negative Ur Leukocyte Esterase Moderate (2+) H Urine RBC 0-2 Urine WBC 6-10 H Ur Squamous Epith Cells 11-20 Urine Bacteria 1+ Hyaline Casts 3-5 Urine Test NEGATIVE Salicylates Urine Opiates Screen Urine Fentanyl Screen Acetaminophen Ur Barbiturates Screen Ur Phencyclidine Scrn Ur Amphetamines Screen U Benzodiazepines Scrn Urine Cocaine Screen U Marijuana (THC) Screen Ethyl Alcohol COVID-19 ([facility]) Negative COVID-19 Clin Com See Note 09/29/22 09/29/22 09/29/22 12:33 Unknown Unknown WBC 6.8 RBC 3.75 L Hgb 11.3 L Hct 33.1 L MCV 88.3 MCH 30.1 MCHC 34.1 RDW 12.7 Plt Count 193 MPV 9.8 Immature Gran % (Auto) 0.6 H Neut % (Auto) 64.6 Lymph % (Auto) 24.6 [place] % (Auto) 7.2 Eos % (Auto) 2.3 Baso % (Auto) 0.7 Lymph # (Auto) 1.7 [place] # (Auto) 0.5 Eos # (Auto) 0.2 Baso # (Auto) 0.1 Abs Immat Gran (auto) 0.04 H Absolute Neuts (auto) 4.4 Absolute Nucleated RBC 0.000 Nucleated RBC % (auto) 0.0 Sodium 134 L Potassium 4.5 Chloride 101 Carbon Dioxide 27 Anion Gap 11 L BUN 7 L Creatinine 0.80 Estim Creat Clear Calc 67.0 Estimated GFR > 60 Random Glucose 104 Fasting Glucose Estimat Average Glucose Hemoglobin A1c % Calcium 9.0 Total Bilirubin 0.4 AST 29 ALT 27 Alkaline Phosphatase 61 Total Protein 6.4 L Albumin 3.5 Triglycerides Cholesterol LDL Cholesterol, Calc HDL Cholesterol Vitamin B12 Folate TSH Urine Color Urine Appearance Urine pH Ur Specific [place] Urine Protein Urine Glucose (UA) Urine Ketones Urine Blood Urine Nitrite Ur Leukocyte Esterase Urine RBC Urine WBC Ur Squamous Epith Cells Urine Bacteria Hyaline Casts Urine Test Salicylates < 5.0 L Urine Opiates Screen Urine Fentanyl Screen Acetaminophen < 17 Ur Barbiturates Screen Ur Phencyclidine Scrn Ur Amphetamines Screen U Benzodiazepines Scrn Urine Cocaine Screen U Marijuana (THC) Screen Ethyl Alcohol < 10 COVID-19 ([facility]) COVID-19 Clin Com 09/29/22 09/30/22 09/30/22 Unknown 08:09 08:09 WBC RBC Hgb Hct MCV MCH MCHC RDW Plt Count MPV Immature Gran % (Auto) Neut % (Auto) Lymph % (Auto) [place] % (Auto) Eos % (Auto) Baso % (Auto) Lymph # (Auto) [place] # (Auto) Eos # (Auto) Baso # (Auto) Abs Immat Gran (auto) Absolute Neuts (auto) Absolute Nucleated RBC Nucleated RBC % (auto) Sodium 138 Potassium 4.0 Chloride 108 Carbon Dioxide 22 Anion Gap 12 BUN 5 L Creatinine 0.77 Estim Creat Clear Calc 69.5 Estimated GFR > 60 Random Glucose Fasting Glucose 82 Estimat Average Glucose 97 Hemoglobin A1c % 5.0 Calcium 9.1 Total Bilirubin 0.6 AST 25 ALT 26 Alkaline Phosphatase 58 Total Protein 7.0 Albumin 3.6 Triglycerides 74 Cholesterol 171 LDL Cholesterol, Calc 83 HDL Cholesterol 74 Vitamin B12 Folate TSH 3.61 Urine Color Urine Appearance Urine pH Ur Specific [place] Urine Protein Urine Glucose (UA) Urine Ketones Urine Blood Urine Nitrite Ur Leukocyte Esterase Urine RBC Urine WBC Ur Squamous Epith Cells Urine Bacteria Hyaline Casts Urine Test Salicylates Urine Opiates Screen Not Detected Urine Fentanyl Screen Not Detected Acetaminophen Ur Barbiturates Screen Not Detected Ur Phencyclidine Scrn Not Detected Ur Amphetamines Screen Not Detected U Benzodiazepines Scrn Not Detected Urine Cocaine Screen Not Detected U Marijuana (THC) Screen POSITIVE H Ethyl Alcohol COVID-19 ([facility]) COVID-19 Clin Com 09/30/22 08:09 WBC RBC Hgb Hct MCV MCH MCHC RDW Plt Count MPV Immature Gran % (Auto) Neut % (Auto) Lymph % (Auto) [place] % (Auto) Eos % (Auto) Baso % (Auto) Lymph # (Auto) [place] # (Auto) Eos # (Auto) Baso # (Auto) Abs Immat Gran (auto) Absolute Neuts (auto) Absolute Nucleated RBC Nucleated RBC % (auto) Sodium Potassium Chloride Carbon Dioxide Anion Gap BUN Creatinine Estim Creat Clear Calc Estimated GFR Random Glucose Fasting Glucose Estimat Average Glucose Hemoglobin A1c % Calcium Total Bilirubin AST ALT Alkaline Phosphatase Total Protein Albumin Triglycerides Cholesterol LDL Cholesterol, Calc HDL Cholesterol Vitamin B12 701 Folate 17.3 TSH Urine Color Urine Appearance Urine pH Ur Specific [place] Urine Protein Urine Glucose (UA) Urine Ketones Urine Blood Urine Nitrite Ur Leukocyte Esterase Urine RBC Urine WBC Ur Squamous Epith Cells Urine Bacteria Hyaline Casts Urine Test Salicylates Urine Opiates Screen Urine Fentanyl Screen Acetaminophen Ur Barbiturates Screen Ur Phencyclidine Scrn Ur Amphetamines Screen U Benzodiazepines Scrn Urine Cocaine Screen U Marijuana (THC) Screen Ethyl Alcohol COVID-19 ([facility]) COVID-19 Clin Com Medications Medications Current Medications Acetaminophen (Acetaminophen 325 Mg Tablet) 650 mg PO Q6H PRN PRN Reason: Headache/Pain Mild Scale (1-3) Last Admin: 09/30/22 18:30 Dose: 650 mg Al Hydroxide/Mg Hydroxide (Magnesium Hydrox/Alum Hydrox 30 Ml Oral.Susp) 30 ml PO Q6H PRN PRN Reason: Heartburn/Nausea Aripiprazole (Aripiprazole 5 Mg Tablet) 5 mg PO DAILY [facility] Last Admin: 10/01/22 09:42 Dose: 5 mg Clonidine HCl (Clonidine Hcl 0.1 Mg Tablet) 0.1 mg PO Q4H PRN; Protocol PRN Reason: anxiety/insomnia Last Admin: 09/30/22 18:30 Dose: 0.1 mg Hydroxyzine HCl (Hydroxyzine Hcl 50 Mg Tablet) 50 mg PO TID PRN PRN Reason: anxiety Last Admin: 09/30/22 20:32 Dose: 50 mg Hydroxyzine HCl (Hydroxyzine Hcl 25 Mg Tablet) 25 mg PO Q6H PRN PRN Reason: Anxiety Lidocaine (Lidocaine 4 % Patch Adh..Patch) 2 patch TRANSDERMA DAILY PRN; Protocol PRN Reason: back pain Last Admin: 09/30/22 09:09 Dose: 2 patch Rough And Ready Carbonate (Rough And Ready Carbonate Er 300 Mg Tablet.Er) 600 mg PO BEDTIME SHERIF Last Admin: 09/30/22 20:32 Dose: 600 mg Magnesium Hydroxide (Milk Of Magnesia 30 Ml Oral.Susp) 30 ml PO DAILY PRN PRN Reason: Constipation Melatonin (Melatonin 3 Mg Tablet) 6 mg PO BEDTIME SHERIF Last Admin: 09/30/22 20:33 Dose: 6 mg Methocarbamol (Methocarbamol 500 Mg Tablet) 500 mg PO BID PRN PRN Reason: muscle spasm Last Admin: 09/30/22 18:30 Dose: 500 mg Multivitamins/Vitamin C (Multivitamin Tablet) 1 tab PO DAILY SHERIF Last Admin: 10/01/22 09:41 Dose: 1 tab Quetiapine Fumarate (Quetiapine Fumarate 25 Mg Tablet) 25 mg PO Q6H PRN PRN Reason: anxiety Sertraline HCl (Sertraline Hcl 100 Mg Tablet) 200 mg PO DAILY SHERIF Last Admin: 10/01/22 09:42 Dose: 200 mg Sumatriptan Succinate (Sumatriptan Succinate 50 Mg Tablet) 50 mg PO DAILY MRX1 PRN PRN Reason: Migraine Headache Last Admin: 09/30/22 02:56 Dose: 50 mg Trazodone HCl (Trazodone Hcl 100 Mg Tablet) 100 mg PO BEDTIME PRN PRN Reason: Insomnia Last Admin: 09/30/22 20:33 Dose: 100 mg Trazodone HCl (Trazodone Hcl 50 Mg Tablet) 50 mg PO BEDTIME PRN PRN Reason: Insomnia Last Admin: 09/30/22 23:44 Dose: 50 mg Allergies Allergies Allergy/AdvReac Type Severity Reaction Status Date / Time gabapentin AdvReac Severe edema Verified 09/09/22 17:30 cheese AdvReac Diarrhea Verified 09/12/22 17:22 egg AdvReac Diarrhea Verified 09/12/22 17:22 Assessment & Plan Assessment & Plan (1) Borderline personality disorder: Status: Suspected Code(s): F60.3 - Borderline personality disorder (2) MDD (major depressive disorder), recurrent severe, without psychosis: Status: Acute Code(s): F33.2 - Major depressive disorder, recurrent severe without psychotic features (3) Chronic post-traumatic stress disorder (PTSD): Status: Acute Code(s): F43.12 - Post-traumatic stress disorder, chronic Plan 47 yo female with history of MDD, PTSD and borderline PD. She was recently DCed from on 09/28/22. Patient presented to crisis with increased SI with plans to go in front of traffic or jump [place] the [place]. Plan: Admit to 15 min checks Collateral information. Group and milieu therapy. Medication adjustments: Lower Seroquel per patient request to 25 mg Increase Abilify to 5 mg daily Start Melatonin for insomnia. Discharge planning. 10/01: increase Abilify to 7.5 mg daily and add Prazosin 2 mg HS Reason for continued inpatient stay Substantial Risk for: harm to self, inability to function and rapid decompensation Time Spent With Patient Time: Total time managing care of this patient today ____ minutes.
[2022-10-01] MEDS: methocarbamoL 500 MG TABLET PO ×2 (11:02→20:24)
[2022-10-01] MEDS: Lidocaine 4 % Patch ADH..PATCH 2 PATCH TRANSDERMA (11:05)
[2022-10-01 11:30] VITALS: BP 130/80
[2022-10-01] MEDS: cloNIDine HCL 0.1 MG TABLET PO (11:30)
[2022-10-01] MEDS: hydrOXYzine HCL 50 MG TABLET PO (16:24)
[2022-10-01 20:20] VITALS: BP 120/87; PULSE 104; RESP 18; TEMP 37.2; O2SAT 99
[2022-10-01] MEDS: Prazosin HCL 1 MG CAPSULE 2 MG PO (20:23)
[2022-10-01] MEDS: Melatonin 3 MG TABLET 6 MG PO (20:23)
[2022-10-01] MEDS: Lithium Carbonate ER 300 MG TABLET.ER 600 MG PO (20:24)
[2022-10-01] MEDS: SUMAtriptan succinate 50 MG TABLET PO (20:24)
[2022-10-02 06:00] VITALS: BP 134/83; PULSE 68; RESP 16; TEMP 36.4; O2SAT 100
[2022-10-02] MEDS: Multivitamin TABLET 1 TAB PO (08:27)
[2022-10-02] MEDS: Sertraline HCL 100 MG TABLET 200 MG PO (08:28)
[2022-10-02] MEDS: ARIPiprazole 5 MG TABLET 7.5 MG PO (08:28)
[2022-10-02] MEDS: hydrOXYzine HCL 50 MG TABLET PO ×2 (08:33→18:34)
[2022-10-02] MEDS: methocarbamoL 500 MG TABLET PO ×2 (08:33→20:16)
[2022-10-02] MEDS: Acetaminophen 325 MG TABLET 650 MG PO (08:33)
[2022-10-02] MEDS: Lidocaine 4 % Patch ADH..PATCH 2 PATCH TRANSDERMA (08:34)
--- NOTE | 2022-10-02 09:09 | P.PNPSI_ITS ---
Subjective Subjective Date of Service: 10/02/22 Reason For Visit: SI Interim History: Met with Patient; discussed with team; reviewed progress notes Throughout the weekend, covering provider reports that patient Denies active SI while on the unit. Patient irritable with automatic typewriter inspector. Says that automatic typewriter inspector is not supposed to be her doctor. However she was willing to talk with automatic typewriter inspector. Patient described discharge last and her return to the hospital on Sunday. She said she went to her therapist with whom she liked very much and had a good rapport. She said that her therapist wondered if she should go back to the hospital however patient explained that she said no,, give me a chance, let me see if I can of go home and be okay... Patient went back home with her and said she was doing okay that day; however that night she had nightmares and woke up the next day feeling triggered, dysregulated and at some point she became suicidal and wanted to run into traffic; her called 911. Bilingual Patient Support Caseworker applauded patient's effort to stay safe and also that she advocated for herself with the therapist, telling her she would like to go home 1st and utilize coping skills and remains stable on her own rather than return to the hospital; automatic typewriter inspector encouraged patient that she herself came up with the same plan that automatic typewriter inspector was trying to explain, the importance of pushing herself to fight through her chronic feelings of loneliness, her chronic SI and emotions and fight to remain stable on her own for as long as she can. Patient responded by saying she was taught as a child to be a fighter and push herself to endure, which automatic typewriter inspector agreed is currently serving her well. Bilingual Patient Support Caseworker shared that this is the process it takes to work through her struggles...that therapy is the neces sity and thus the goal is to stay safe in the community as long as possible so that she can continue to engage in outpatient therapy, the biggest mcghee to her prolonged stability. While patient agreed with this concept, she was specifically upset with the idea of having to do work on this in the comm unity...of constantly having to fight to stay safe and out of the hospital. She said that she never wanted to discharge last time and reiterated that she wanted to remain on the unit until she was no longer feeling this way. Patient would not accept that these chronic feelings/struggles are not going to dissipate during an in-patient admission; but rather require consistent outpatient therapy during which time and with practice involves learning to better tolerate such feelings until they pass. Patient then yelled shame on you... and accused automatic typewriter inspector of not caring what happens to her, not caring about her feelings; she would not except automatic typewriter inspector's plea to the contrary and and would not talk further Patient continued to express to staff that on the unit she is safe and without SI Patient engaging in staff splitting, expressing to some staff that staff in general are ignoring her. Patient telling other patients on the unit that this automatic typewriter inspector is a bad uncaring doctor (patient did the same at the last admission) resulting in several patients coming up to automatic typewriter inspector or other staff asking about this. Mental Status Exam Mental Status Exam Narrative: Pt is alert and oriented; behavior is not cooperative, irritable; patient is not in distress; dressed in casual attire, adequately groomed; mood is described as anxious and affect constricted; eye contact appropriate; Speech is normal rate, volume and prosody and not pressured; no psychomotor retardation present; thought process is organized and goal directed; Thought content on feeling ignored, unheard during last admission...dealing with emotions; otherwise pertinent to relevant topics and without any delusional content, paranoid ideations or grandiosity; SI but only if discharged; no HI. There is no evidence of perceptual disturbance. Patients insight and judgment impaired but adequate and at baseline. Diagnostics Vital Signs (24Hr): Vital Signs - 24 hr 10/01/22 09:36 10/01/22 11:30 10/01/22 20:20 Temperature 98.3 F 99 F Pulse Rate 91 104 H Respiratory Rate 16 18 Blood Pressure 132/88 130/80 120/87 Pulse Oximetry 100 99 Oxygen Delivery Method Room Air Room Air BMI result Body Mass Index 19.5 Labs 09/29/22 12:33 09/30/22 08:09 Labs: Laboratory Results - last 48 hr 09/30/22 08:09 Vitamin B12 701 Folate 17.3 Medications Medications Current Medications Acetaminophen (Acetaminophen 325 Mg Tablet) 650 mg PO Q6H PRN PRN Reason: Headache/Pain Mild Scale (1-3) Last Admin: 10/02/22 08:33 Dose: 650 mg Al Hydroxide/Mg Hydroxide (Magnesium Hydrox/Alum Hydrox 30 Ml Oral.Susp) 30 ml PO Q6H PRN PRN Reason: Heartburn/Nausea Aripiprazole (Aripiprazole 5 Mg Tablet) 7.5 mg PO DAILY SHERIF Last Admin: 10/02/22 08:28 Dose: 7.5 mg Clonidine HCl (Clonidine Hcl 0.1 Mg Tablet) 0.1 mg PO Q4H PRN; Protocol PRN Reason: anxiety/insomnia Last Admin: 10/01/22 11:30 Dose: 0.1 mg Hydroxyzine HCl (Hydroxyzine Hcl 50 Mg Tablet) 50 mg PO TID PRN PRN Reason: anxiety Last Admin: 10/02/22 08:33 Dose: 50 mg Hydroxyzine HCl (Hydroxyzine Hcl 25 Mg Tablet) 25 mg PO Q6H PRN PRN Reason: Anxiety Lidocaine (Lidocaine 4 % Patch Adh..Patch) 2 patch TRANSDERMA DAILY PRN; Protocol PRN Reason: back pain Last Admin: 10/02/22 08:34 Dose: 2 patch [place] Carbonate ([place] Carbonate Er 300 Mg Tablet.Er) 600 mg PO BEDTIME SHERIF Last Admin: 10/01/22 20:24 Dose: 600 mg Magnesium Hydroxide (Milk Of Magnesia 30 Ml Oral.Susp) 30 ml PO DAILY PRN PRN Reason: Constipation Melatonin (Melatonin 3 Mg Tablet) 6 mg PO BEDTIME SHERIF Last Admin: 10/01/22 20:23 Dose: 6 mg Methocarbamol (Methocarbamol 500 Mg Tablet) 500 mg PO BID PRN PRN Reason: muscle spasm Last Admin: 10/02/22 08:33 Dose: 500 mg Multivitamins/Vitamin C (Multivitamin Tablet) 1 tab PO DAILY SHERIF Last Admin: 10/02/22 08:27 Dose: 1 tab Prazosin HCl (Prazosin Hcl 1 Mg Capsule) 2 mg PO BEDTIME SEHRIF; Protocol Last Admin: 10/01/22 20:23 Dose: 2 mg Quetiapine Fumarate (Quetiapine Fumarate 25 Mg Tablet) 25 mg PO Q6H PRN PRN Reason: anxiety Sertraline HCl (Sertraline Hcl 100 Mg Tablet) 200 mg PO DAILY SHERIF Last Admin: 10/02/22 08:28 Dose: 200 mg Sumatriptan Succinate (Sumatriptan Succinate 50 Mg Tablet) 50 mg PO DAILY MRX1 PRN PRN Reason: Migraine Headache Last Admin: 10/01/22 20:24 Dose: 50 mg Trazodone HCl (Trazodone Hcl 100 Mg Tablet) 100 mg PO BEDTIME PRN PRN Reason: Insomnia Last Admin: 09/30/22 20:33 Dose: 100 mg Trazodone HCl (Trazodone Hcl 50 Mg Tablet) 50 mg PO BEDTIME PRN PRN Reason: Insomnia Last Admin: 09/30/22 23:44 Dose: 50 mg Allergies Allergies Allergy/AdvReac Type Severity Reaction Status Date / Time gabapentin AdvReac Severe edema Verified 09/09/22 17:30 cheese AdvReac Diarrhea Verified 09/12/22 17:22 egg AdvReac Diarrhea Verified 09/12/22 17:22 Assessment & Plan Assessment & Plan (1) Borderline personality disorder: Status: Suspected Code(s): F60.3 - Borderline personality disorder (2) Chronic post-traumatic stress disorder (PTSD): Status: Acute Code(s): F43.12 - Post-traumatic stress disorder, chronic (3) MDD (major depressive disorder), recurrent severe, without psychosis: Status: Acute Code(s): F33.2 - Major depressive disorder, recurrent severe without psychotic features Plan 47 yo female with history of MDD, PTSD and borderline PD. She was recently DCed from on 09/28/22 and returned on 09/29/22. Patient presented to crisis with increased SI with plans to go in front of traffic or jump into the [place]. Hospital course: 10/02 Patient irritable with automatic typewriter inspector. Says that automatic typewriter inspector is not supposed to be her doctor. However she was willing to talk with automatic typewriter inspector. Patient described discharge last and her return to the hospital on Sunday. She said she went to her therapist with whom she liked very much and had a good rapport. She said that her therapist wondered if she should go back to the hospital however patient explained that she said no,, give me a chance, let me see if I can of go home and be okay... Patient went back home with her and said she was doing okay that day; however that night she had nightmares and woke up the next day feeling triggered, dysregulated and at some point she became suicidal and wanted to run into traffic; her called 911. Bilingual Patient Support Caseworker applauded patient's effort to stay safe and also that she advocated for herself with the therapist, telling her she would like to go home 1st and utilize coping skills and remains stable on her own rather than return to the hospital; automatic typewriter inspector encouraged patient that she herself came up with the same plan that automatic typewriter inspector was trying to explain, the importance of pushing herself to fight through her chronic feelings of loneliness, her chronic SI and emotions and fight to remain stable on her own for as long as she can. Patient responded by saying she was taught as a child to be a fighter and push herself to endure, which automatic typewriter inspector agreed is currently serving her well. Bilingual Patient Support Caseworker shared that this is the process it takes to work through her struggles...that therapy is the necessity and thus the goal is to stay safe in the community as long as possible so that she can continue to engage in outpatient therapy, the biggest mcghee to her prolonged stability. While patient agreed with this concept, she was specifically upset with the idea of having to do work on this in the community...of constantly having to fight to stay safe and out of the hospital. She said that she never wanted to discharge last time and reiterated that she w anted to remain on the unit until she was no longer feeling this way. Patient would not accept that these chronic feelings/struggles are not going to dissipate during an in-patient admission; but rather require consistent outpatient therapy during which time and with practice involves learning to b doni tolerate such feelings until they pass. Patient then yelled shame on you... and accused automatic typewriter inspector of not caring what happens to her, not caring about her feelings; she would not except automatic typewriter inspector's plea to the contrary and and would not talk further Patient continued to express to staff that on the unit she is safe and without SI Patient engaging in staff splitting, expressing to some staff that staff in general are ignoring her. Patient telling other patients on the unit that this automatic typewriter inspector is a bad uncaring doctor (patient did the same at the last admission) resulting in several patients coming up to automatic typewriter inspector or other staff asking about this. Impression: Patient has a history of trauma with subsequent PTSD and depression; she read self reports she has ASD as well. It seems that patient was doing overall well for years, out of the hospital for decades and with no suicide attempt other than decades. Patient and lost housing at the pandemic and it seems that her depression, anxiety and PTSD symptoms have worsened over the past couple years resulted in recent admissions. At her 1st admission, Patient was stabilized on the unit with medications and group therapy; however her readmission demonstrated a pattern where pt would stabilize, feel better, hopeful, either denying any SI or self harm at all or saying that thoughts were fleeting and resolved on their own...until the topic of discharge planning was broached when she became anxious, say she was unsafe, not ready for discharge and feeling unheard and pushed out. Her time on the unit was also marked by significant and disruptive borderline personality traits, engaging in staff splitting, accusing staff of being at uncaring and ignoring her, accusing various staff and peers of being racist and rejecting various options for treatment such as partial program (At one point, though self reporting safety denying any SI, patient asked to stay an additional 7 days, just so she could attend more groups; due to insurance constraints it was explained that 7 days was a challenge, but that patient was could stay an additional 5 days; on hearing this she immediately refused the additional 5 days and said instead she might as well just discharged tomorrow that if she could not stay for all 7 she might as well just leave... Within minutes of the conversation patient started to cry and told staff that automatic typewriter inspector did care about her, does not care what happens to her and is forcing her to discharge when she is not ready to.... The next day patient ultimately decided to remain for the a dditional 5 days). Patient has chronic SI and self-harming urges (reporting that she has been superficially self-harming since childhood). Given patient's diagnosis and history, her self reports of chronically feeling rejected and that people, doctors don't care about her (and from reports from her ) this behavior was not unexpected and accepted as part of her baseline struggles. Bilingual Patient Support Caseworker and social sciences professor tried to help patient understand that due to her history of trauma and chronic feelings of rejection she was vulnerable to sometimes missapplying these ever-present chronic feelings to her present situations... and that these chronic struggles will only resolve with time and consistent outpatient therapy. However, patient struggled to accept this and continued to insist her feelings and needs were disregarded. Ironically, though patient could not tolerate this discussion with automatic typewriter inspector, she demonstrated her own understanding and application when she was discharged last Thursday to her therapist and during session declined to go back to the hospital, instead telling her therapist she'd rather have a chance [to] see if I can of go home and be okay... Team agreed that patient's symptoms and struggles will be best treated by consistent 1 on 1 outpatient therapy; team also agrees that staying on the inpatient unit is counterproductive, overly triggering for patient and pr olonging her recovery (patient is already again accusing staff of ignoring her needs, not caring for her, engaging staff splitting, etcetera...). Team continues to agree that patient has derived the maximum benefit that hospitalization can offer and that continued treatment for her symptoms necessit ates consistent outpatient therapy where she can more pointedly and over time, process through her history of trauma and its effects. Thankfully she has a supportive and has also demonstrated years of being able to cope with these struggles in the community as well as a demonstrated a ability and willingness to reach out for help when she is feeling unsafe. That said, at her baseline she remains vulnerable to dysregulation, intermittent, chronic struggles with SI and self-harming urges and is vulnerable to becoming unsafe. It is almost certain that these struggles will continue for the foreseeable future. However the only effective treatment for this remains in the outpatient community. And as mentioned, longer stay on the inpatient unit will not be helpful but rather impede further progress. -will get collateral and patient has given verbal permission to talk with her and therapist. However at this time, will continue to plan for discharge this week Plan: Admit to [facility] 15 min checks Collateral information. Group and milieu therapy. Medication adjustments: Continue home medications/recent medication regimen with some adjustments Lower Seroquel per patient request to 25 mg Increase Abilify to 7.5 mg daily Prazosin 2 mg HS Patient educated on: diagnosis, medication risk/benefits and therapeutic strategies Informed Consent: understands, does not understand and further education needed Reason for continued inpatient stay Substantial Risk for: stable for discharge Time Spent With Patient Time: Total time managing care of this patient today ____ minutes.
[2022-10-02] MEDS: cloNIDine HCL 0.1 MG TABLET PO (14:34)
[2022-10-02] MEDS: SUMAtriptan succinate 50 MG TABLET PO (16:54)
[2022-10-02 18:00] VITALS: BP 154/93; PULSE 84; TEMP 36.9; O2SAT 100
[2022-10-02] MEDS: Melatonin 3 MG TABLET 6 MG PO (20:15)
[2022-10-02] MEDS: Lithium Carbonate ER 300 MG TABLET.ER 600 MG PO (20:15)
[2022-10-02] MEDS: Prazosin HCL 1 MG CAPSULE 2 MG PO (20:15)
[2022-10-03 03:10] VITALS: BP 133/78
[2022-10-03] MEDS: cloNIDine HCL 0.1 MG TABLET PO ×3 (03:14→20:13)
[2022-10-03] MEDS: ARIPiprazole 5 MG TABLET 7.5 MG PO (08:16)
[2022-10-03] MEDS: Sertraline HCL 100 MG TABLET 200 MG PO (08:17)
[2022-10-03] MEDS: Multivitamin TABLET 1 TAB PO (08:17)
[2022-10-03 08:26] VITALS: BP 139/79; PULSE 90; RESP 18; TEMP 36.6; O2SAT 100
[2022-10-03] MEDS: methocarbamoL 500 MG TABLET PO ×2 (08:33→20:13)
[2022-10-03] MEDS: Acetaminophen 325 MG TABLET 650 MG PO ×2 (08:33→23:47)
[2022-10-03] MEDS: Lidocaine 4 % Patch ADH..PATCH 2 PATCH TRANSDERMA (08:34)
[2022-10-03 09:13] LABS: Lithium 0.59 mmol/L (0.60-1.20)
[2022-10-03] MEDS: hydrOXYzine HCL 50 MG TABLET PO ×2 (11:43→20:12)
[2022-10-03 11:44] VITALS: BP 137/85; PULSE 79
[2022-10-03] MEDS: Magnesium Hydrox/Alum Hydrox 30 ML ORAL.SUSP PO (13:31)
--- NOTE | 2022-10-03 17:20 | MHC.CARE ---
Per Dr. Federico Lynn, moving forward pt should be offered respite as this is more appropriate level of care.
[2022-10-03 18:00] VITALS: BP 132/74; PULSE 82; RESP 16; TEMP 36.8; O2SAT 100
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
[2022-10-03] MEDS: Prazosin HCL 1 MG CAPSULE 2 MG PO (20:12)
[2022-10-03] MEDS: Melatonin 3 MG TABLET 6 MG PO (20:12)
[2022-10-03] MEDS: Lithium Carbonate ER 300 MG TABLET.ER 600 MG PO (20:13)
[2022-10-03] MEDS: traZODone HCL 50 MG TABLET PO (23:47)
[2022-10-03] MEDS: QUEtiapine Fumarate 25 MG TABLET PO (23:48)
[2022-10-04 06:00] VITALS: BP 134/73; PULSE 80; RESP 16; TEMP 36.1; O2SAT 98
[2022-10-04] MEDS: ARIPiprazole 5 MG TABLET 7.5 MG PO (08:20)
[2022-10-04] MEDS: Sertraline HCL 100 MG TABLET 200 MG PO (08:20)
[2022-10-04] MEDS: Multivitamin TABLET 1 TAB PO (08:20)
[2022-10-04] MEDS: Lidocaine 4 % Patch ADH..PATCH 2 PATCH TRANSDERMA (08:32)
[2022-10-04] MEDS: methocarbamoL 500 MG TABLET PO ×2 (08:33→20:04)
[2022-10-04] MEDS: Acetaminophen 325 MG TABLET 650 MG PO (08:33)
[2022-10-04] MEDS: SUMAtriptan succinate 50 MG TABLET PO ×2 (08:33→20:04)
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
[2022-10-04] MEDS: QUEtiapine Fumarate 25 MG TABLET PO (16:15)
[2022-10-04 20:00] VITALS: BP 126/93; PULSE 102; RESP 18; TEMP 37.1; O2SAT 99
[2022-10-04] MEDS: Prazosin HCL 1 MG CAPSULE 2 MG PO (20:04)
[2022-10-04] MEDS: Melatonin 3 MG TABLET 6 MG PO (20:04)
[2022-10-04] MEDS: Lithium Carbonate ER 300 MG TABLET.ER 600 MG PO (20:04)
[2022-10-04] MEDS: traZODone HCL 50 MG TABLET PO (20:04)
[2022-10-05] MEDS: Acetaminophen 325 MG TABLET 650 MG PO (08:25)
[2022-10-05] MEDS: Multivitamin TABLET 1 TAB PO (08:25)
[2022-10-05] MEDS: Sertraline HCL 100 MG TABLET 200 MG PO (08:25)
[2022-10-05] MEDS: methocarbamoL 500 MG TABLET PO (08:25)
[2022-10-05] MEDS: ARIPiprazole 5 MG TABLET 7.5 MG PO (08:25)
[2022-10-05] MEDS: Lidocaine 4 % Patch ADH..PATCH 2 PATCH TRANSDERMA (08:26)
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
== END 2022-10-05 13:08 | DRG 885 ==
LOC: HO.ED 15:43 → HO.PM5 22:23
PROVIDERS: Physician Assistant; Physician Assistant Medical; Admitting Provider Social Worker; Emergency Provider Emergency Medicine; Visit Provider Psychiatry & Neurology Psychiatry
DX: F33.2 Major depressive disorder, recurrent severe without psychotic features (principal); R45.851 Suicidal ideations; F60.3 Borderline personality disorder; F43.12 Post-traumatic stress disorder, chronic; M79.7 Fibromyalgia; Z20.822 Contact with and (suspected) exposure to COVID-19; Z59.01 Sheltered homelessness; Z87.891 Personal history of nicotine dependence; Z79.899 Other long term (current) drug therapy
CPT/HCPCS: 36415; 80053; 80061; 80143; 80178; 80179; 80307; 81001; 81025; 82607; 82746; 83036; 84443; 85025; 87635; 93005; 99285

== ENCOUNTER → 2022-09-29 11:45 | Outpatient (BNV) | payer OTHER, SELFPAY | PROVIDERS: Emergency Provider Emergency Medicine; Visit Provider Internal Medicine Cardiovascular Disease | DX: R94.31 Abnormal electrocardiogram [ECG] [EKG] (principal) | CPT/HCPCS: 93010 ==

== ENCOUNTER → 2022-09-29 22:16 | Outpatient (BNV) | payer OTHER, SELFPAY | PROVIDERS: Admitting Provider Social Worker; Emergency Provider Emergency Medicine; Visit Provider Psychiatry & Neurology Psychiatry | DX: F60.3 Borderline personality disorder (principal); F43.12 Post-traumatic stress disorder, chronic; F33.2 Major depressive disorder, recurrent severe without psychotic features | CPT/HCPCS: 90792; 99231; 99232; 99239 ==

== ENCOUNTER 2022-11-11 07:55 | Emergency (ER) | payer OTHER, SELFPAY ==
[2022-11-11 08:00] VITALS: BP 105/48; BP 150/70; PULSE 59; PULSE 68; RESP 16; TEMP 36.5; O2SAT 100; O2SAT 98; BMI 26.9
--- NOTE | 2022-11-11 08:00 | ED_ITS ---
HPI - Psych General Chief Complaint: Psychiatric Symptoms Stated Complaint: SI W/PLAN Time Seen by Provider: 11/11/22 07:59 Source: patient and EMS Mode of arrival: EMS Limitations: no limitations History of Present Illness HPI Narrative: 47 yo female with history of PTSD, fibromyalgia, depression presents to the ER with SI w/ plan to overdose on her pills. She reports he does dispense the medications to her but they are not in a secure location. States they are just in a drawer and I can go in and take them all. Tells me this morning she had a bottle in her hands and she was planning on take them all but her stopped her. No HI, AVH. No substance use. No physical complaints. Intermittently compliant with her medications. MD complaint: suicidal ideation and feels depressed Related Data Previous Rx's Medication Instructions Recorded acetaminophen 325 mg tablet 650 mg PO Q6H PRN Headache/Pain 10/05/22 Mild Scale (1-3) #0 tabs aluminum-magnesium hydroxide 200 30 ml PO Q6H PRN Heartburn/Nausea 10/05/22 mg-200 mg/5 mL oral suspension #0 mL (MAG-AL) aripiprazole 5 mg tablet (Abilify) 7.5 mg PO DAILY 30 days #45 tabs 10/05/22 clonidine HCl 0.1 mg tablet 0.1 mg PO Q4H PRN anxiety/insomnia 10/05/22 30 days #90 tabs hydroxyzine HCl 50 mg tablet 50 mg PO TID PRN anxiety 30 days 10/05/22 #60 tabs lidocaine 4 % topical patch 2 patch transdermal DAILY PRN back 10/05/22 (Lidocaine Pain Relief) pain 30 days #60 ea lithium carbonate 300 mg 600 mg PO BEDTIME 30 days #60 tabs 10/05/22 tablet,extended release melatonin 3 mg tablet 6 mg PO BEDTIME PRN sleep 30 days 10/05/22 #60 tabs methocarbamol 500 mg tablet 500 mg PO BID PRN muscle spasm 30 10/05/22 days #60 tabs multivitamin (Daily-Vernell tablet) 1 tab PO DAILY 30 days #30 tabs 10/05/22 prazosin 2 mg capsule 2 mg PO BEDTIME 30 days #30 caps 10/05/22 quetiapine 25 mg tablet 25 mg PO TID PRN anxiety 30 days 10/05/22 #90 tabs sertraline 100 mg tablet 200 mg PO DAILY 30 days #60 tabs 10/05/22 sumatriptan succinate 50 mg tablet 50 mg PO DAILY MRX1 PRN Migraine 10/05/22 Headache 30 days #8 tabs trazodone 50 mg tablet 50 mg PO BEDTIME PRN insomnia 30 10/05/22 days #30 tabs Allergies Allergy/AdvReac Type Severity Reaction Status Date / Time gabapentin AdvReac Severe edema Verified 09/09/22 17:30 cheese AdvReac Diarrhea Verified 09/12/22 17:22 egg AdvReac Diarrhea Verified 09/12/22 17:22 Review of Systems Review of Systems: Yes all other systems are reviewed and are negative Constitutional: Constitutional: Reports no additional constitutional complaints, Denies body ache(s), Denies chills, Denies fever(s), Denies headache(s) and Denies weakness Eyes: Eyes: Reports no additional eye complaints and Denies change in vision ENT: Reports system reviewed and no additional complaints, except as documented, Denies dizziness, Denies headache(s), Denies nasal congestion, Denies nasal discharge and Denies neck pain Cardiovascular: Cardiovascular: Reports no additional cardiovascular complaints, Denies chest pain, Denies leg edema and Denies dyspnea Respiratory: Respiratory: Reports no additional respiratory complaints, Denies cough and Denies dyspnea Gastrointestinal: Gastrointestinal: Reports no additional gastrointestinal complaints, Denies abdominal pain, Denies diarrhea, Denies nausea and Denies vomiting Genitourinary: Genitourinary: Reports no additional female genitourinary complaints and Denies urinary incontinence Musculoskeletal: Musculoskeletal: Reports no additional musculoskeletal complaints, Denies back pain, Denies arthralgias, Denies joint swelling, Denies neck pain, Denies numbness and Denies tingling Integumentary/Breasts: Skin/Breast: Reports system reviewed and no additional complaints, except as docu and Denies rash Neurologic: Reports system reviewed and no additional complaints, except as documented, Denies Abnormal speech present, Denies dizziness, Denies headache(s), Denies numbness, Denies tingling and Denies weakness Psychiatric: Psychiatric: Denies anxiety, Reports depression, Denies visual hallucinations, Denies hallucinations, Denies tactile hallucinations, Denies zacarias icidal ideation and Reports suicidal ideation PMFSH Past Medical History Attestation statement: The following information was validated with the patient. Source: old records reviewed and nursing notes reviewed Medical History Asthma Chronic fatigue syndrome Chronic post-traumatic stress disorder (PTSD) CRPS (complex regional pain syndrome), upper limb Fibromyalgia History of encephalitis MDD (major depressive disorder), recurrent severe, without psychosis Migraine Osteoarthritis Type 2 diabetes mellitus Social History Social History Household Members: Spouse Housing: Other Housing Other:: [facility] Do you presently have visiting nurse or other home services: No Alcohol intake: never Patient Tobacco Use Status: Former Tobacco user Smoked in Last 30 Days: No e-Cigarette/Vaping Use: Never Used Second Hand Smoke Exposure: No Use of substances other than those prescribed or required for medical reasons: Yes Substance Use Type: Marijuana Advance Directives: No service: No Sexual orientation: Straight/Heterosexual Physical Exam Vital Signs: Vital Signs: Last Vital Signs Temp 97.7 F 11/11/22 08:00 Pulse 48 L 11/11/22 11:21 Resp 16 11/11/22 11:21 BP 110/47 L 11/11/22 11:21 Pulse Ox 99 11/11/22 11:21 O2 Del Method Room Air 11/11/22 11:21 BMI result Body Mass Index 26.9 Const: General: cooperative, healthy appearing, comfortable and no acute distress Orientation/consciousness: patient oriented x3 Limitations: no limitations HEENT: Head: Yes normal to inspection Ears: hearing grossly normal bilaterally General nose exam: Normal external nose present Face and sinus: Yes normal facial exam Mouth: Normal oral and palatal mucosa present Throat: Yes posterior oropharynx normal Eyes: General: appearance normal, both eyes and all related structures Pupils: Equal, round and reactive pupils present Neck: Neck: Yes normal visual inspection Chest: Chest palpation & inspection: normal inspection of the chest Resp: Effort & Inspection: normal respiratory effort Auscultation: clear to auscultation bilaterally Cardio: Rate: regular rate Rhythm: regular rhythm Peripheral pulses: Peripheral pulses 2+ throughout GI: Inspection: Yes normal to inspection Palpation (GI): Soft to palpation and nontender Auscultation: normal bowel sounds Back/Spine/Pelvis: Thoracic/Lumbar Spine: thoracic and lumbar spine normal to inspection Skin: General skin exam: no rashes or lesions noted Neuro: General: patient oriented x3, no focal motor deficits and normal sensation to monofilament Cranial nerves: Yes Equal, round and reactive pupils present Cognition (Neuro): normal cognition Speech: No Abnormal speech present Gait exam (Neuro): Normal gait present Motor exam (neuro): 5/5 motor strength present throughout Extrem: General: Yes normal to inspection Course Course Course Narrative: 1020-No concern for acute ingestion or trauma. Will medically clear for CARE team eval Medical Decision Making Medical Decision Making [facility] Narrative: 47 yo female with history of PTSD, fibromyalgia, depression presents to the ER with SI with plan No physical complaints No concern for acute ingestion or trauma Will need drug screen, labs then crisis consultation Differential Diagnosis Differential Diagnoses: The differential diagnosis associated with the presentation includes depression, ptsd Admission/Observation Consideration of admission/observation: Escalation of care including admission/observation considered Patient with SI with plan needing inpatient admission d/t concerns for safety Consult Healthcare Provider Management of the patient was discussed with: Behavioral Health Provider seen by care team-plan for inpatient bed search on section 12 Lab Data MDM Lab Attestation statement: I reviewed the patient's lab results. unremarkable 11/11/22 08:47 11/11/22 08:47 Labs: Lab Results 11/11/22 11/11/22 11/11/22 Range/Units 08:47 08:47 08:47 WBC 9.7 (4.8-10.8) X10*3/uL RBC 4.45 (4.20-5.50) X10*6/uL Hgb 13.3 (12.0-16.0) g/dl Hct 39.1 (37.0-47.0) % MCV 87.9 (80.0-98.0) fL MCH 29.9 (27.0-33.0) pg MCHC 34.0 (31.0-35.0) g/dl RDW 11.9 (11.0-16.0) % Plt Count 273 D (160-400) X10*3/uL MPV 10.0 (9.4-12.3) fL Immature Gran % (Auto) 0.5 H (0.0-0.4) % Neut % (Auto) 41.5 L (45-73) % Lymph % (Auto) 43.0 H (20-40) % Foster % (Auto) 8.1 (2-11) % Eos % (Auto) 5.8 H (0-4) % Baso % (Auto) 1.1 (0-2) % Lymph # (Auto) 4.2 (1.2-4.9) X10*3/uL Foster # (Auto) 0.8 (0.1-1.2) X10*3/uL Eos # (Auto) 0.6 H (0.0-0.4) X10*3/uL Baso # (Auto) 0.1 (0.0-0.2) X10*3/uL Abs Immat Gran (auto) 0.05 H (0.00-0.03) X10*3/uL Absolute Neuts (auto) 4.0 (2.0-8.3) x10*3/uL Absolute Nucleated RBC 0.000 (0.0-0.012) X10*3/uL Nucleated RBC % (auto) 0.0 (0.0-0.2) /100WBC Sodium 138 (135-145) mmol/L Potassium 3.3 (3.3-5.1) mmol/L Chloride 108 (96-108) mmol/L Carbon Dioxide 19 L (22-29) mmol/L Anion Gap 14 (12-20) BUN 6 L (9-16) mg/dL Creatinine 0.79 (0.5-1.4) mg/dL Estim Creat Clear Calc 80.2 Estimated GFR > 60 Random Glucose 70 (60-115) mg/dL Calcium 9.1 (8.4-10.2) mg/dL Total Bilirubin 0.4 (0.0-1.0) mg/dL Direct Bilirubin 0.2 (0.0-0.5) mg/dL AST 28 (5-31) U/L ALT 24 (0-31) U/L Alkaline Phosphatase 55 (39-117) U/L Total Protein 7.0 (6.5-8.0) g/dL Albumin 3.8 (3.5-5.0) g/dL Urine Test (NEGATIVE) Salicylates < 5.0 L (15-30) mg/dL Urine Opiates Screen (Not Detect) Urine Fentanyl Screen (Not Detect) Acetaminophen < 17 (<30) mcg/mL Ur Barbiturates Screen (Not Detect) Ur Phencyclidine Scrn (Not Detect) Ur Amphetamines Screen (Not Detect) U Benzodiazepines Scrn (Not Detect) Urine Cocaine Screen (Not Detect) U Marijuana (THC) Screen (Not Detect) Ethyl Alcohol < 10 mg/dL 11/11/22 11/11/22 Range/Units 08:47 08:47 WBC (4.8-10.8) X10*3/uL RBC (4.20-5.50) X10*6/uL Hgb (12.0-16.0) g/dl Hct (37.0-47.0) % MCV (80.0-98.0) fL MCH (27.0-33.0) pg MCHC (31.0-35.0) g/dl RDW (11.0-16.0) % Plt Count (160-400) X10*3/uL MPV (9.4-12.3) fL Immature Gran % (Auto) (0.0-0.4) % Neut % (Auto) (45-73) % Lymph % (Auto) (20-40) % Foster % (Auto) (2-11) % Eos % (Auto) (0-4) % Baso % (Auto) (0-2) % Lymph # (Auto) (1.2-4.9) X10*3/uL Foster # (Auto) (0.1-1.2) X10*3/uL Eos # (Auto) (0.0-0.4) X10*3/uL Baso # (Auto) (0.0-0.2) X10*3/uL Abs Immat Gran (auto) (0.00-0.03) X10*3/uL Absolute Neuts (auto) (2.0-8.3) x10*3/uL Absolute Nucleated RBC (0.0-0.012) X10*3/uL Nucleated RBC % (auto) (0.0-0.2) /100WBC Sodium (135-145) mmol/L Potassium (3.3-5.1) mmol/L Chloride (96-108) mmol/L Carbon Dioxide (22-29) mmol/L Anion Gap (12-20) BUN (9-16) mg/dL Creatinine (0.5-1.4) mg/dL Estim Creat Clear Calc Estimated GFR Random Glucose (60-115) mg/dL Calcium (8.4-10.2) mg/dL Total Bilirubin (0.0-1.0) mg/dL Direct Bilirubin (0.0-0.5) mg/dL AST (5-31) U/L ALT (0-31) U/L Alkaline Phosphatase (39-117) U/L Total Protein (6.5-8.0) g/dL Albumin (3.5-5.0) g/dL Urine Test NEGATIVE (NEGATIVE) Salicylates (15-30) mg/dL Urine Opiates Screen Not Detected (Not Detect) Urine Fentanyl Screen Not Detected (Not Detect) Acetaminophen (<30) mcg/mL Ur Barbiturates Screen Not Detected (Not Detect) Ur Phencyclidine Scrn Not Detected (Not Detect) Ur Amphetamines Screen Not Detected (Not Detect) U Benzodiazepines Scrn Not Detected (Not Detect) Urine Cocaine Screen Not Detected (Not Detect) U Marijuana (THC) Screen POSITIVE H (Not Detect) Ethyl Alcohol mg/dL Independent Historian Clinical information obtained from an independent historian. History obtained from or confirmed by: EMS Discharge Plan Discharge Clinical Impression: Suicidal ideation Patient Disposition: Admitted As Inpatient Interventions: Victoria-Suicide Risk Severity Scale Last Done: 11/11/22 08:08
[2022-11-11 08:08] VITALS: PULSE 62; RESP 16; O2SAT 100
[2022-11-11 08:58] LABS: MANUAL DIFF FLAG NO
[2022-11-11 09:01] LABS: Basophils Absolute Auto 0.1 X10*3/uL (0.0-0.2); Basophils Percent Auto 1.1 % (0-2); Eosinophils Absolute Auto 0.6 X10*3/uL (0.0-0.4); Eosinophils Percent Auto 5.8 % (0-4); Hematocrit 39.1 % (37.0-47.0); Hemoglobin 13.3 g/dl (12.0-16.0); Imm Gran Abs Auto 0.05 X10*3/uL (0.00-0.03); Imm Gran Pct Auto 0.5 % (0.0-0.4); Lymphocytes Absolute Auto 4.2 X10*3/uL (1.2-4.9); Mean Corpuscular Hemoglobin 29.9 pg (27.0-33.0); Mean Corpuscular Volume 87.9 fL (80.0-98.0); Monocytes Absolute Auto 0.8 X10*3/uL (0.1-1.2); Monocytes Percent Auto 8.1 % (2-11); Neutrophils Percent Auto 41.5 % (45-73); Platelet Count 273 X10*3/uL (160-400); Red Blood Count 4.45 X10*6/uL (4.20-5.50); Red Cell Distribution Width 11.9 % (11.0-16.0); White Blood Count 9.7 X10*3/uL (4.8-10.8)
[2022-11-11 09:12] LABS: UPreg QC Valid YES
[2022-11-11 09:14] LABS: Urine Pregnancy NEGATIVE (NEGATIVE)
[2022-11-11 09:22] LABS: Amphetamine Screen Urine Not Detected (Not Detect); Barbiturates, Urine Not Detected (Not Detect); Benzodiazepines Screen Urine Not Detected (Not Detect); Cannabinoid Screen Urine POSITIVE (Not Detect); Cocaine Screen Urine Not Detected (Not Detect); Fentanyl, urine Not Detected (Not Detect); Opiate Screen Urine Not Detected (Not Detect); Phencyclidine Screen Urine Not Detected (Not Detect)
[2022-11-11 10:12] LABS: Alanine Aminotransferase 24 U/L (0-31); Albumin Level 3.8 g/dL (3.5-5.0); Alkaline Phosphatase 55 U/L (39-117); Anion Gap 14 (12-20); Aspartate Amino Transferase 28 U/L (5-31); Bilirubin Direct 0.2 mg/dL (0.0-0.5); Bilirubin Total 0.4 mg/dL (0.0-1.0); Blood Urea Nitrogen 6 mg/dL (9-16); Calcium 9.1 mg/dL (8.4-10.2); Carbon Dioxide 19 mmol/L (22-29); Chloride 108 mmol/L (96-108); Creatinine Clr Calc Pharmacy 80.2; Estimated Glomerular Filt Rate > 60; Ethanol < 10 mg/dL; Glucose Random 70 mg/dL (60-115); Potassium 3.3 mmol/L (3.3-5.1); Sodium 138 mmol/L (135-145)
[2022-11-11 10:17] LABS: Acetaminophen LAB < 17 mcg/mL (<30); Salicylate < 5.0 mg/dL (15-30)
[2022-11-11 11:21] VITALS: BP 110/47; PULSE 48; RESP 16; O2SAT 99
--- NOTE | 2022-11-11 12:57 | PC.NURSE ---
Asya was transferred to the POD from a bed in the main emergency dept. Pleasant but guarded when engaged and limited answers. She does report she has SI but is safe while in the hospital. visited and requested she be given only raw and fresh fruits and vegetables as he keeps her on a raw vegan diet . Dietary called and a lunch tray with a salad and fruit was provided. No behavioral concerns noted. Staff will continue to monitor and offer support.
--- NOTE | 2022-11-11 14:59 | MHC.CARE ---
RAD Team conducted a bed search for this individual. [facility] both had [facility] beds so her referral was faxed and receipt was confirmed. If the pt is not accepted to a facility today her bed search will be exhausted for the day. RAD will follow up tomorrow if necessary.
[2022-11-11 17:54] LABS: COVID-19 Test Negative (Negative); IDNOW Serial# 08D9AD1C
[2022-11-11 17:57] VITALS: BP 113/69; PULSE 52; RESP 17; TEMP 36.4; O2SAT 100
--- NOTE | 2022-11-11 18:43 | MHC.CARE ---
CARE Team called [facility] and obtained auth number [id number] and then called [facility] and relayed the information to RUBÉN Banuelos. The review date is 10/14/22 and they have to reach out to Anel storm [id number] at [phone].
--- NOTE | 2022-11-11 18:51 | MHC.CARE ---
Pt was accepted to [facility], per RUBÉN Banuelos at [facility]
== END 2022-11-11 19:32 ==
PROVIDERS: Nurse Practitioner Family; Emergency Provider Emergency Medicine
DX: R45.851 Suicidal ideations (principal); F32.A Depression, unspecified; F60.3 Borderline personality disorder; F43.12 Post-traumatic stress disorder, chronic; E11.9 Type 2 diabetes mellitus without complications; F12.90 Cannabis use, unspecified, uncomplicated; Z87.891 Personal history of nicotine dependence; Z79.899 Other long term (current) drug therapy
CPT/HCPCS: 36415; 80048; 80076; 80143; 80179; 80307; 81025; 85025; 87635; 99285; S9485

== ENCOUNTER 2023-01-07 07:25 | Inpatient (IN) | payer OTHER, SELFPAY ==
[2023-01-07] VITALS (10 sets, daily range): BP systolic 97–134; BP diastolic 65–90; PULSE 43–80; RESP 12–17; TEMP 36.7–37; O2SAT 98–100; BMI 28.8
--- NOTE | 2023-01-07 07:47 | ECG_ITS ---
Test Reason : CLONIDINE OVERDOSE Blood Pressure : / mmHG Vent. Rate : 061 BPM Atrial Rate : 061 BPM P-R Int : 144 ms QRS Dur : 096 ms QT Int : 392 ms P-R-T Axes : 043 006 012 degrees QTc Int : 394 ms Normal sinus rhythm Incomplete right bundle branch block Borderline ECG No significant changes seen Referred By: Jie Sharp Electronically Signed By:LI CHAMBERS MD
--- NOTE | 2023-01-07 07:49 | ED.PSYCH ---
HPI - Psych General Chief Complaint: Psychiatric Symptoms Stated Complaint: SI, OD UNK AMOUNT OF CLONIDINE .1MG PER EMS Time Seen by Provider: 01/07/23 07:35 Source: patient and RN notes reviewed Mode of arrival: EMS Limitations: no limitations History of Present Illness HPI Narrative: This is a 47-year-old female, with a hx of depression, PTSD, chronic regional pain syndrome, osteoarthritis, and type 2 diabetes presenting to the emergency department for evaluation of suicidal attempt made about 1 hour ago. Patient states that this morning she woke up and took a handful of clonidine. She is unsure how many tablets she had taken. She states that this is the only medication she took was clonidine this morning. She states that her called EMS after seeing what she had done. She states that she cannot do it anymore . States significant stressors. She states that she is more afraid of living at this point than she is dying. She has had previous SI attempts in the past. She states that she is feeling tired, otherwise no other symptoms. Patient reports that she has had multiple hospital admissions psychiatrically, she goes to [facility] as well as [facility] her treatment. Denies any chest pain or palpitations. No nausea, vomiting, or abdominal pain. No other complaints or concerns at this time. MD complaint: suicidal ideation and feels depressed Onset (ago): hour(s) History of same: Yes Relieving factors: none Exacerbating factors: none Context: significant life stressor Associated psychiatric symptoms: depression and suicidal ideation Associated symptoms: denies other symptoms If self harm: admits thoughts of self harm, has plan, has acted on plan and intentional overdose Details of plan: Took handful of clonidine Related Data Home Medications Medication Instructions Recorded Confirmed clonidine HCl 0.1 mg tablet 0.1 mg PO BID PRN anxiety/insomnia 01/07/23 01/07/23 lisinopril 10 mg tablet 10 mg PO DAILY 01/07/23 01/07/23 prazosin 5 mg capsule 5 mg PO BEDTIME 01/07/23 01/07/23 trazodone 100 mg tablet 100 mg PO BEDTIME PRN Insomnia 01/07/23 01/07/23 ziprasidone HCl 20 mg capsule 20 mg PO DAILY 01/07/23 01/07/23 Previous Rx's Medication Instructions Recorded lithium carbonate 300 mg 600 mg (2 x 300 mg) PO BEDTIME 30 10/05/22 tablet,extended release days #60 tabs melatonin 3 mg tablet 6 mg (2 x 3 mg) PO BEDTIME PRN 10/05/22 sleep 30 days #60 tabs methocarbamol 500 mg tablet 500 mg PO BID PRN muscle spasm 30 10/05/22 days #60 tabs multivitamin (Daily-Vernell tablet) 1 tab PO DAILY 30 days #30 tabs 10/05/22 quetiapine 25 mg tablet 25 mg PO TID PRN anxiety 30 days 10/05/22 #90 tabs sumatriptan succinate 50 mg tablet 50 mg PO DAILY MRX1 PRN Migraine 10/05/22 Headache 30 days #8 tabs Allergies Allergy/AdvReac Type Severity Reaction Status Date / Time gabapentin AdvReac Severe edema Verified 01/03/23 15:31 cheese AdvReac Diarrhea Verified 01/03/23 15:31 egg AdvReac Diarrhea Verified 01/03/23 15:31 ENVIRONMENTAL Allergy Mild DIFFICULTY Uncoded 01/03/23 15:31 BREATHING seasonal Allergy Unknown Uncoded 01/03/23 15:31 Review of Systems Review of Systems: Yes all other systems are reviewed and are negative Constitutional: Constitutional: Reports as per [facility] Past Medical History Medical History (Updated 01/07/23 @ 15:01 by JESSICA Moralez) MDD (major depressive disorder), recurrent severe, without psychosis Chronic post-traumatic stress disorder (PTSD) History of encephalitis Osteoarthritis Migraine Fibromyalgia CRPS (complex regional pain syndrome), upper limb Chronic fatigue syndrome Asthma Type 2 diabetes mellitus Social History Social History (System 01/03/23 @ 15:31 by Yvonne Bailon) Household Members: Spouse Housing: Other Housing Other:: [facility] Do you presently have visiting nurse or other home services: No Alcohol intake: never Patient Tobacco Use Status: Former Tobacco user e-Cigarette/Vaping Use: Never Used Second Hand Smoke Exposure: No Substance Use Type: Marijuana Advance Directives: No Advance Directives Information Provided: No Healthcare Proxy: No Guardian: No service: No Sexual orientation: Straight/Heterosexual Physical Exam Vital Signs: Vital Signs: Last Vital Signs Temp 97.5 F 01/08/23 06:28 Pulse 80 01/08/23 06:28 Resp 17 01/08/23 06:28 BP 86/62 L 01/08/23 06:28 Pulse Ox 99 01/08/23 06:28 O2 Del Method Room Air 01/08/23 06:28 BMI result Body Mass Index 28.8 Const: General: cooperative, comfortable and no acute distress Orientation/consciousness: patient oriented x3 Limitations: no limitations HEENT: Head: Yes normal to inspection, Yes normocephalic and Yes atraumatic Ears: hearing grossly normal bilaterally General nose exam: Normal external nose present Face and sinus: Yes normal facial exam Mouth: Normal oral and palatal mucosa present, oropharynx normal and moist mucous membranes Throat: Yes posterior oropharynx normal Eyes: General: appearance normal, both eyes and all related structures Eyelids: Yes eyelids normal Conjunctivae: conjunctivae normal Sclerae: sclerae normal Pupils: Equal, round and reactive pupils present EOM: EOMs intact bilaterally Neck: Neck: Yes normal visual inspection, Yes full ROM and Yes no lymphadenopathy Lymphatic: no lymphadenopathy noted Chest: Chest palpation & inspection: normal inspection of the chest Resp: Effort & Inspection: normal respiratory effort and able to speak in complete sentences Auscultation: clear to auscultation bilaterally, no crackles, no rales, no rhonchi and no wheezes Cardio: Rate: regular rate Rhythm: regular rhythm Heart sounds: S1 normal heart sound present and S2 normal heart sound present GI: Inspection: Yes normal to inspection Skin: General skin exam: no rashes or lesions noted Trauma: no lacerations or abrasions Wounds: no wounds Neuro: General: patient oriented x3 and moves all extremities Cranial nerves: Yes Equal, round and reactive pupils present Extrem: General: Yes normal to inspection Right upper extremity: normal to inspection Left upper extremity: normal to inspection Right lower extremity: normal to inspection Left lower extremity: normal to inspection Psych: Appearance: grossly normal Mental Status: mental status grossly normal Speech and movement: Slowed movement present (Neuro) Affect: Sad affect present and Blunted affect present Attitude: Avoids eye contact (attititude/behavior) Thought process: Perseverating thought process present Thought content: Suicidality present Insight: Poor insight present (Psych) Judgement: Poor judgement present (Psych) Course Reevaluation(s) Reevaluation #1: Patient resting comfortably, sinus Guero between 45 and 55 beats per minute. Patient has a history of bradycardia in the past according to records. Poison Control advised to repeat EKG, UDS, lithium level. Advised to keep on monitor. If no changes, ok for medical clearance at 1500. Blood pressure has been stable the entire hospital stay. Labs reassuring. Will continue to monitor. Time: 13:31 Reevaluation #2: Care team saw patient, will initiating respit bed search. Patient has remained stable, blood pressure stable, still mildly bradycardic between high 40s and 50s. Patient medically cleared, will continue to monitor pending respite bed placement. Time: 14:59 Time: 07:13 Medications Administered Generic Name Dose Route Start Last Admin Trade Name Freq PRN Reason Stop Dose Admin [place] Carbonate 600 mg 01/07/23 21:00 01/07/23 20:11 [place] Carbonate Er 300 Mg Tablet.Er PO 600 mg BEDTIME SHERIF Administration Prazosin HCl 5 mg 01/07/23 21:00 01/07/23 20:14 Prazosin Hcl 5 Mg Capsule PO Not Given BEDTIME SHERIF Protocol Trazodone HCl 100 mg 01/07/23 18:20 01/07/23 20:11 Trazodone Hcl 100 Mg Tablet PO 100 mg BEDTIME PRN Administration Insomnia Medical Decision Making Medical Decision Making [facility] Narrative: A 7-year-old female, with a past medical history of major depressive disorder, presenting to the emergency department for evaluation of suicidal attempt which occurred today. Patient states that she took a ?handful? of clonidine. Her stopped her during this attempt and called EMS. Patient states that she is feeling tired, and no longer wants to live. She reports significant stressors at home. On arrival, patient is tired appearing with blunted, sad affect, all vital signs are within normal. Plan: Labs, EKG, urine drug screen, salicylate, acetaminophen level, blood pressure Q 15 minutes. Poison Control called, care team consult Differential Diagnosis Differential Diagnoses: The differential diagnosis associated with the presentation includes Intentional drug overdose, suicidal attempt, depression, anxiety Admission/Observation Consideration of admission/observation: Escalation of care including admission/observation considered Escalation of care including admission observation considered due to suicidality with suicide attempt. Lab Data [facility] Lab Attestation statement: I reviewed the patient's lab results. 01/07/23 08:41 01/07/23 08:41 Labs: Lab Results 01/07/23 01/07/23 01/07/23 Range/Units 08:41 11:33 11:37 WBC 5.3 (4.8-10.8) X10*3/uL RBC 4.32 (4.20-5.50) X10*6/uL Hgb 13.1 (12.0-16.0) g/dl Hct 37.1 (37.0-47.0) % MCV 85.9 (80.0-98.0) fL MCH 30.3 (27.0-33.0) pg MCHC 35.3 H (31.0-35.0) g/dl RDW 12.3 (11.0-16.0) % Plt Count 197 D (160-400) X10*3/uL MPV 11.1 (9.4-12.3) fL Immature Gran % (Auto) 0.8 H (0.0-0.4) % Neut % (Auto) 63.7 (45-73) % Lymph % (Auto) 27.8 (20-40) % [place] % (Auto) 4.4 (2-11) % Eos % (Auto) 2.7 (0-4) % Baso % (Auto) 0.6 (0-2) % Lymph # (Auto) 1.5 (1.2-4.9) X10*3/uL [place] # (Auto) 0.2 (0.1-1.2) X10*3/uL Eos # (Auto) 0.1 (0.0-0.4) X10*3/uL Baso # (Auto) 0.0 (0.0-0.2) X10*3/uL Abs Immat Gran (auto) 0.04 H (0.00-0.03) X10*3/uL Absolute Neuts (auto) 3.4 (2.0-8.3) x10*3/uL Absolute Nucleated RBC 0.000 (0.0-0.012) X10*3/uL Nucleated RBC % (auto) 0.0 (0.0-0.2) /100WBC Sodium 139 (135-145) mmol/L Potassium 4.1 D (3.3-5.1) mmol/L Chloride 108 (96-108) mmol/L Carbon Dioxide 20 L (22-29) mmol/L Anion Gap 15 (12-20) BUN 9 (9-16) mg/dL Creatinine 0.82 (0.5-1.4) mg/dL Estim Creat Clear Calc 79.7 Estimated GFR > 60 Random Glucose 108 (60-115) mg/dL Calcium 9.2 (8.4-10.2) mg/dL Magnesium 2.2 (1.6-2.6) mg/dL Total Bilirubin 0.6 (0.0-1.0) mg/dL Direct Bilirubin 0.1 (0.0-0.5) mg/dL AST 28 (5-31) U/L ALT 21 (0-31) U/L Alkaline Phosphatase 45 (39-117) U/L Troponin I High Sens < 2.7 (<3.5-17.0) ng/L Total Protein 7.4 (6.5-8.0) g/dL Albumin 4.0 (3.5-5.0) g/dL Lipase 33 (8-78) U/L Urine Color Yellow Urine Appearance Clear Urine pH >= 9.0 (5.0-9.0) Ur Specific [place] 1.010 (1.005-1.025) Urine Protein Negative (Neg-Trace) mg/dL Urine Glucose (UA) Negative (Negative) mg/dL Urine Ketones Negative (Negative) mg/dL Urine Blood Negative (Negative) Urine Nitrite Negative (Negative) Ur Leukocyte Esterase Trace H (Negative) Urine RBC 0-2 (0-2) /HPF Urine WBC 0-5 (0-5) /HPF Ur Squamous Epith Cells 3-5 (0-2) /HPF Urine Bacteria None Seen (None Seen) Hyaline Casts 0-2 (0-2) /LPF Salicylates < 5.0 L (15-30) mg/dL Urine Opiates Screen Not Detected (Not Detect) Urine Fentanyl Screen Not Detected (Not Detect) Acetaminophen < 17 (<30) mcg/mL Ur Barbiturates Screen Not Detected (Not Detect) Ur Phencyclidine Scrn Not Detected (Not Detect) Ur Amphetamines Screen Not Detected (Not Detect) U Benzodiazepines Scrn Not Detected (Not Detect) [place] < 0.10 L (0.60-1.20) mmol/L Urine Cocaine Screen Not Detected (Not Detect) U Marijuana (THC) Screen POSITIVE H (Not Detect) Ethyl Alcohol < 10 mg/dL Independent Interpretation I performed an independent interpretation of an: EKG Interpretation: EKG 08:12AM - normal sinus rhythm with a incomplete right bundle branch block ST elevation or depression. QTC 394. CA interval 144. EKG performed at 1043 - sinus bradycardia with sinus arrhythmia at a ventricular rate of 54 beats per minute, QRS 94, QTC 381. No ST elevation or depression. Independent Historian Clinical information obtained from an independent historian. History obtained from or confirmed by: EMS Social Determinants Patient?s care significantly limited by Social Determinants of Health including: Inadequate housing Critical Care Time Critical Care Time Critical Care Time: Yes Total Critical Care Time: 35 Attestation: I have personally provided critical care time exclusive of time spent on separately billable procedures. Time includes review of lab data, radiology results, discussion with consultants, and monitoring for potential decompensation. Intervention performed as documented. Discharge Plan Discharge Clinical Impression: Intentional overdose, MDD (major depressive disorder), recurrent severe, without psychosis Patient Disposition: Still a Patient Prescriptions: No Action melatonin 3 mg Tablet 6 mg PO BEDTIME PRN (Reason: sleep) 30 Days Qty: 60 0RF multivitamin [Daily-Vernell] Tablet 1 tab PO DAILY 30 Days Qty: 30 1RF quetiapine 25 mg tablet 25 mg PO TID PRN (Reason: anxiety) 30 Days Qty: 90 0RF methocarbamol 500 mg Tablet 500 mg PO BID PRN (Reason: muscle spasm) 30 Days Qty: 60 0RF sumatriptan succinate 50 mg Tablet 50 mg PO DAILY MRX1 PRN (Reason: Migraine Headache) 30 Days Qty: 8 1RF lithium carbonate 300 mg Tablet Extended Release 600 mg PO BEDTIME 30 Days Qty: 60 0RF prazosin 5 mg capsule 5 mg PO BEDTIME ziprasidone HCl 20 mg capsule 20 mg PO DAILY trazodone 100 mg tablet 100 mg PO BEDTIME PRN (Reason: Insomnia) lisinopril 10 mg tablet 10 mg PO DAILY clonidine HCl 0.1 mg tablet 0.1 mg PO BID PRN (Reason: anxiety/insomnia) Protocol: Hold for SBP< HOLD for SBP < : 90 Interventions: [place]-Suicide Risk Severity Scale Last Done: 01/08/23 06:09
--- NOTE | 2023-01-07 08:03 | PC.NURSE ---
placed call to requesting pill bottle of clonidine 0.1mg to have accurate amount from overdose, patient states he can bring the pills in when buses run around approx 10am. however, he states that the pill bottle appears full stating about 20 or more pills still in bottle. patient being changed over at bedside.
[2023-01-07 08:47] LABS: MANUAL DIFF FLAG NO
[2023-01-07 09:08] LABS: Acetaminophen LAB < 17 mcg/mL (<30); Alanine Aminotransferase 21 U/L (0-31); Alkaline Phosphatase 45 U/L (39-117); Anion Gap 15 (12-20); Aspartate Amino Transferase 28 U/L (5-31); Bilirubin Direct 0.1 mg/dL (0.0-0.5); Bilirubin Total 0.6 mg/dL (0.0-1.0); Blood Urea Nitrogen 9 mg/dL (9-16); Calcium 9.2 mg/dL (8.4-10.2); Carbon Dioxide 20 mmol/L (22-29); Chloride 108 mmol/L (96-108); Creatinine Clr Calc Pharmacy 79.7; Estimated Glomerular Filt Rate > 60; Ethanol < 10 mg/dL; Glucose Random 108 mg/dL (60-115); Lipase 33 U/L (8-78); Magnesium 2.2 mg/dL (1.6-2.6); Potassium 4.1 mmol/L (3.3-5.1); Salicylate < 5.0 mg/dL (15-30); Sodium 139 mmol/L (135-145); Total Protein 7.4 g/dL (6.5-8.0)
[2023-01-07 09:11] LABS: Troponin-I High Sensitivity < 2.7 ng/L (<3.5-17.0)
[2023-01-07 09:18] LABS: Basophils Percent Auto 0.6 % (0-2); Eosinophils Absolute Auto 0.1 X10*3/uL (0.0-0.4); Eosinophils Percent Auto 2.7 % (0-4); Hematocrit 37.1 % (37.0-47.0); Hemoglobin 13.1 g/dl (12.0-16.0); Imm Gran Abs Auto 0.04 X10*3/uL (0.00-0.03); Imm Gran Pct Auto 0.8 % (0.0-0.4); Lymphocytes Absolute Auto 1.5 X10*3/uL (1.2-4.9); Lymphocytes Percent Auto 27.8 % (20-40); Mean Corpuscular HGB Conc 35.3 g/dl (31.0-35.0); Mean Corpuscular Hemoglobin 30.3 pg (27.0-33.0); Mean Corpuscular Volume 85.9 fL (80.0-98.0); Mean Platelet Volume 11.1 fL (9.4-12.3); Monocytes Absolute Auto 0.2 X10*3/uL (0.1-1.2); Monocytes Percent Auto 4.4 % (2-11); Neutrophils Absolute Auto 3.4 x10*3/uL (2.0-8.3); Neutrophils Percent Auto 63.7 % (45-73); Platelet Count 197 X10*3/uL (160-400); Red Blood Count 4.32 X10*6/uL (4.20-5.50); Red Cell Distribution Width 12.3 % (11.0-16.0); White Blood Count 5.3 X10*3/uL (4.8-10.8)
--- NOTE | 2023-01-07 10:00 | ECG_ITS ---
Test Reason : RECHECK Blood Pressure : / mmHG Vent. Rate : 054 BPM Atrial Rate : 054 BPM P-R Int : 152 ms QRS Dur : 094 ms QT Int : 402 ms P-R-T Axes : 038 012 012 degrees QTc Int : 381 ms Sinus bradycardia with sinus arrhythmia Incomplete right bundle branch block Borderline ECG No significant changes seen Referred By: Jie Sharp Electronically Signed By:LI CHAMBERS MD
--- NOTE | 2023-01-07 11:05 | PC.NURSE ---
at bedside, brought in medication. this RN and PA counted 30 pills, filled in october. unable to obtain exact amount of pills taken. patient remains alert, awake, and oriented. conversing with at bedside.
[2023-01-07 11:44] LABS: Appearance Urine Clear; Color Urine Yellow; Glucose Urine UA Negative (Negative); Leukocyte Esterase Urine Trace (Negative); Nitrite Urine Negative (Negative); PH >= 9.0 (5.0-9.0); UMIC TRIGGER UACC YES; Urine Blood Negative (Negative); Urine Ketones Negative (Negative); Urine Protein Negative (Neg-Trace)
[2023-01-07 11:47] LABS: Bacteria Urine None Seen (None Seen); Hyaline Casts Urine 0-2 /LPF (0-2); RBC Urine 0-2 /HPF (0-2); WBC Urine 0-5 /HPF (0-5)
[2023-01-07 11:51] LABS: Amphetamine Screen Urine Not Detected (Not Detect); Barbiturates, Urine Not Detected (Not Detect); Benzodiazepines Screen Urine Not Detected (Not Detect); Cannabinoid Screen Urine POSITIVE (Not Detect); Cocaine Screen Urine Not Detected (Not Detect); Fentanyl, urine Not Detected (Not Detect); Opiate Screen Urine Not Detected (Not Detect); Phencyclidine Screen Urine Not Detected (Not Detect)
[2023-01-07 11:54] LABS: Lithium < 0.10 mmol/L (0.60-1.20)
--- NOTE | 2023-01-07 12:38 | PC.NURSE ---
per poison control, monitor hr until 1530 d/t bradycardia.
--- NOTE | 2023-01-07 14:59 | PC.NURSE ---
HR has remained 40's-50's - previous visits show HR in the 40's as well.
--- NOTE | 2023-01-07 17:43 | PHA.MEDREC ---
Pharmacy Consult ? Medication Reconciliation Pharmacy has completed the medication reconciliation. spoke with patient to confirm medications. She has not taken lithium, lisinopril, geodon, prazosin, seroquel, or trazodone in about a week due to running out and having a hard time trying to get refills. Claim history supports this. She reports being taken off of abilify, hydroxyzine, sertraline, and fluvoxamine.
[2023-01-07] MEDS: Lithium Carbonate ER 300 MG TABLET.ER 600 MG PO (20:11)
[2023-01-07] MEDS: traZODone HCL 100 MG TABLET PO (20:11)
--- NOTE | 2023-01-08 | ECG_ITS ---
Test Reason : prolong qt Blood Pressure : / mmHG Vent. Rate : 057 BPM Atrial Rate : 057 BPM P-R Int : 144 ms QRS Dur : 096 ms QT Int : 410 ms P-R-T Axes : 053 015 020 degrees QTc Int : 399 ms Sinus bradycardia Incomplete right bundle branch block Borderline ECG When compared with ECG of 07-JAN-2023 10:43, No significant change was found Referred By: Jill Lyons Electronically Signed By:LI CHAMBERS MD
[2023-01-08 02:30] VITALS: BP 89/58; PULSE 72; RESP 17; TEMP 37.1; O2SAT 98
[2023-01-08 06:28] VITALS: BP 86/62; PULSE 80; RESP 17; TEMP 36.4; O2SAT 99
--- NOTE | 2023-01-08 06:40 | PC.NURSE ---
Patient slept through the night, no distress observed/reported, medication compliant, Prazosin held for decreased BP, , behavior non concerning, care consult ordered/pending evaluation, labs completed/resulted, VSS, will continue to monitor.
--- NOTE | 2023-01-08 07:09 | PC.NURSE ---
patient recently awakened by peers talking, seemingly patient awaits care team assessment.
[2023-01-08 07:34] VITALS: BP 100/64; PULSE 79; RESP 16; O2SAT 100
[2023-01-08] MEDS: Multivitamin TABLET 1 TAB PO (08:50)
[2023-01-08] MEDS: Ziprasidone 20 MG CAPSULE PO (08:50)
[2023-01-08] MEDS: hydrOXYzine HCL 25 MG TABLET PO (09:08)
[2023-01-08 13:26] LABS: COVID-19 Test Negative (Negative); IDNOW Serial# BCCEAD1C
[2023-01-08 17:33] VITALS: BP 105/69; PULSE 60; RESP 20; TEMP 36.4; O2SAT 100
[2023-01-08 17:35] VITALS: BMI 26.6
--- NOTE | 2023-01-08 17:54 | PC.ADMIT ---
Asya is a 47 yo ukrainian speaking female admitted from the ED on a CV. Pt has been living homeless with her spouse and is having increased depression and attempted to OD on a handful of clonodine 0.1 mg. Pts diagnosed with MDD and PTSD. Pt has had suicide attempts in the past and self harming behaviors. Pt was recently on M5 x3. Pt was A&O x4. Tox screen positive for THC. Pt arrived calm and cooperative, mood depressed, blunted affect, speech soft and even. Pt reports having AH/VH over the past 6 months with a negative tone. Pts thoughts are linear, denies ideation or plan to self harm. Pt hasn't taken medications as prescribed because she ran out and didn't seek refills due to forgetting. Pt reports losing 10 pounds in the last month due to lack of appetite. She reports sleep is poor. Pts medical concerns are Osteoarthritis, Fibromyalgia, Type II Diabetes, and Asthma. VSS, reports generalized pain is always a 9/10. Pt placed on 15 minute checks.
[2023-01-08] MEDS: Melatonin 3 MG TABLET 6 MG PO (21:48)
[2023-01-08] MEDS: traZODone HCL 100 MG TABLET PO (21:49)
[2023-01-08] MEDS: QUEtiapine Fumarate 25 MG TABLET PO (21:49)
[2023-01-08] MEDS: Prazosin HCL 5 MG CAPSULE PO (21:49)
[2023-01-08] MEDS: Lithium Carbonate ER 300 MG TABLET.ER 600 MG PO (21:49)
[2023-01-08] MEDS: methocarbamoL 500 MG TABLET PO (21:49)
[2023-01-08 21:59] VITALS: BP 104/60; PULSE 60; TEMP 36.7; O2SAT 99
[2023-01-09 07:40] VITALS: BP 101/67; PULSE 81; TEMP 36.3; O2SAT 100
[2023-01-09] MEDS: lisinopriL 10 MG TABLET PO (08:20)
[2023-01-09] MEDS: Ziprasidone 20 MG CAPSULE PO (08:20)
[2023-01-09] MEDS: Multivitamin TABLET 1 TAB PO (08:20)
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
[2023-01-09] MEDS: clonazePAM 0.5 MG TABLET PO ×2 (16:05→20:49)
[2023-01-09] MEDS: methocarbamoL 500 MG TABLET PO (16:08)
[2023-01-09 20:10] VITALS: BP 107/72; RESP 14; TEMP 36.7; O2SAT 100
[2023-01-09] MEDS: QUEtiapine Fumarate 25 MG TABLET PO (20:49)
[2023-01-09] MEDS: Prazosin HCL 5 MG CAPSULE PO (20:49)
[2023-01-09] MEDS: traZODone HCL 100 MG TABLET PO (20:49)
[2023-01-09] MEDS: Melatonin 3 MG TABLET 6 MG PO (20:50)
[2023-01-10] MEDS: Acetaminophen 325 MG TABLET 650 MG PO (00:56)
[2023-01-10] MEDS: methocarbamoL 500 MG TABLET PO ×2 (04:13→20:55)
[2023-01-10 06:00] VITALS: BP 110/71; PULSE 110; TEMP 36.2; O2SAT 97
[2023-01-10] MEDS: clonazePAM 0.5 MG TABLET PO ×2 (09:07→20:52)
[2023-01-10] MEDS: lisinopriL 10 MG TABLET PO (09:07)
[2023-01-10] MEDS: QUEtiapine Fumarate 25 MG TABLET PO (09:08)
[2023-01-10] MEDS: Multivitamin TABLET 1 TAB PO (09:08)
[2023-01-10] MEDS: Ziprasidone 20 MG CAPSULE PO (09:08)
[2023-01-10 20:30] VITALS: BP 128/75; PULSE 127; TEMP 36.8; O2SAT 98
--- NOTE | 2023-01-10 20:50 | P.PNPSI_ITS ---
Subjective Subjective Date of Service: 01/10/23 Reason For Visit: Suicide attempt Subjective Notes: Conditional Voluntary Interim History: Pt reports she slept better. She reports feeling ready for discharged and practice coping skills. She completed chain analysis and went over criteria of BPD who she reports resonates with her. She denies any plan or intent to harm herself. She does note suicidality can change. She presents as future oriented. She reports feeling supported by her who she reports is very supportive. She has been visible on the unit and attends groups. Medication Compliance: Yes Side effects from medications: No Attending Groups: Yes Review of Systems Review of Systems Pt denies SOB, chest pain. No constipation or diarrhea. Yes all other systems are reviewed and are negative Constitutional: Reports as per [facility] Mental Status Exam Mental Status Exam Narrative: Appearance: wearing casual clothing, good hygiene, in NAD Behavior: cooperative Psychomotor: no agitation or retardation noted Speech: clear, normal rate/rhythm/volume, spontaneous TP: linear TC: no signs of psychosis, feeling more optimistic and future oriented. Mood: better Affect: congruent SI:denies- but has chronic, intermittent thoughts, sometimes impulsively may engage in self harm HI: denies VH/AH: none Delusions: none Insight/judgment: poor x 2. Memory/cog: alert, oriented x 3. grossly intact to conversational testing. Diagnostics Vital Signs (24Hr): Vital Signs - 24 hr 01/10/23 06:00 Temperature 97.1 F Pulse Rate 110 H Blood Pressure 110/71 Pulse Oximetry 97 Oxygen Delivery Method Room Air BMI result Body Mass Index 26.6 Labs 01/07/23 08:41 01/07/23 08:41 Medications Medications Current Medications Acetaminophen (Acetaminophen 325 Mg Tablet) 650 mg PO Q6H PRN PRN Reason: Headache/Pain Mild Scale (1-3) Last Admin: 01/10/23 00:56 Dose: 650 mg Al Hydroxide/Mg Hydroxide (Magnesium Hydrox/Alum Hydrox 30 Ml Oral.Susp) 30 ml PO Q6H PRN PRN Reason: Heartburn/Nausea Clonazepam (Clonazepam 0.5 Mg Tablet) 0.5 mg PO BID [facility] Last Admin: 01/10/23 09:07 Dose: 0.5 mg Lisinopril (Lisinopril 10 Mg Tablet) 10 mg PO DAILY [facility]; Protocol Last Admin: 01/10/23 09:07 Dose: 10 mg Magnesium Hydroxide (Milk Of Magnesia 30 Ml Oral.Susp) 30 ml PO DAILY PRN PRN Reason: Constipation Melatonin (Melatonin 3 Mg Tablet) 6 mg PO BEDTIME PRN PRN Reason: sleep Last Admin: 01/09/23 20:50 Dose: 6 mg Methocarbamol (Methocarbamol 500 Mg Tablet) 500 mg PO BID PRN PRN Reason: muscle spasm Last Admin: 01/10/23 04:13 Dose: 500 mg Multivitamins/Vitamin C (Multivitamin Tablet) 1 tab PO DAILY SHERIF Last Admin: 01/10/23 09:08 Dose: 1 tab Prazosin HCl (Prazosin Hcl 5 Mg Capsule) 5 mg PO BEDTIME SHERIF; Protocol Last Admin: 01/09/23 20:49 Dose: 5 mg Quetiapine Fumarate (Quetiapine Fumarate 25 Mg Tablet) 25 mg PO TID PRN PRN Reason: anxiety Last Admin: 01/10/23 09:08 Dose: 25 mg Sumatriptan Succinate (Sumatriptan Succinate 50 Mg Tablet) 50 mg PO DAILY MRX1 PRN PRN Reason: Migraine Headache Trazodone HCl (Trazodone Hcl 100 Mg Tablet) 100 mg PO BEDTIME PRN PRN Reason: Insomnia Last Admin: 01/09/23 20:49 Dose: 100 mg Ziprasidone (Ziprasidone 20 Mg Capsule) 20 mg PO DAILY SHERIF Last Admin: 01/10/23 09:08 Dose: 20 mg Allergies Allergies Allergy/AdvReac Type Severity Reaction Status Date / Time gabapentin AdvReac Severe edema Verified 01/03/23 15:31 cheese AdvReac Diarrhea Verified 01/03/23 15:31 egg AdvReac Diarrhea Verified 01/03/23 15:31 ENVIRONMENTAL Allergy Mild DIFFICULTY Uncoded 01/03/23 15:31 BREATHING seasonal Allergy Unknown Uncoded 01/03/23 15:31 Assessment & Plan Assessment & Plan (1) Borderline personality disorder: Status: Suspected Code(s): F60.3 - Borderline personality disorder (2) Chronic post-traumatic stress disorder (PTSD): Status: Acute Code(s): F43.12 - Post-traumatic stress disorder, chronic (3) MDD (major depressive disorder), recurrent severe, without psychosis: Status: Acute Code(s): F33.2 - Major depressive disorder, recurrent severe without psychotic features Plan Mrs. Curry is a 47 year-old woman with hx of BPD, MDD, PTSD who self presented to [facility] ED after OD on clonidine- no changes in VS noted and later brought bottle that contain almost all tablets initially filled. Pt has continued to express chronic suicidal thoughts, with intermittent self harm behaviors. We discussed risks, benefits and alternative treatment options. Pt asks that lithium is discontinued despite conversation of medication for suicidality. She reports clonazepam has helped with overwhelming emotions and impulse control to act on those. We discussed at lenght her diagnosis and presentation which is consistent with Boderline Personality Disorder- including fear of abandonment, chronic sense of emptiness, instability in relationships, difficulty self regulating when feeling overwhelmed, self harm behaviors not always reflecting suicidality to communicating distress and maladaptive ways of coping with stress. We discussed at length that most effective treatment is outpatient, sometimes DBT approaches or group therapy can be of most help. PLAN 1. Admit to M3, CV, 15 minutes checks for safety 01/11 continue tx. plan for d/c tomorrow. Reason for continued inpatient stay Substantial Risk for: stable for discharge Time Spent With Patient Time: Total time managing care of this patient today ____ minutes.
[2023-01-10] MEDS: Prazosin HCL 5 MG CAPSULE PO (20:52)
[2023-01-10] MEDS: traZODone HCL 100 MG TABLET PO (20:56)
[2023-01-11] MEDS: Acetaminophen 325 MG TABLET 650 MG PO ×2 (01:13→09:18)
[2023-01-11] MEDS: Melatonin 3 MG TABLET 6 MG PO (01:13)
[2023-01-11] MEDS: QUEtiapine Fumarate 25 MG TABLET PO (01:14)
[2023-01-11 06:00] VITALS: BP 140/90; PULSE 93; RESP 16; TEMP 36.6; O2SAT 100
[2023-01-11 07:00] VITALS: BMI 27.5
[2023-01-11] MEDS: Ziprasidone 20 MG CAPSULE PO (08:30)
[2023-01-11] MEDS: Multivitamin TABLET 1 TAB PO (08:30)
[2023-01-11] MEDS: clonazePAM 0.5 MG TABLET PO (08:30)
[2023-01-11] MEDS: lisinopriL 10 MG TABLET PO (08:31)
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
--- NOTE | 2023-01-11 12:37 | PC.NURSE ---
Patient easily engaged. Reports feeling anxious and excited to leave today. Denies depression or sadness, denies SI/HI plan or intent, denies self harming ideation. Reports she is ready to go . Denies perceptual disturbances, denies A/V hallucination. No overt psychosis or expressed delusions. Reports she always is paranoid . Follow up appointments reviewed with patient, reports understanding. Discharge medications reviewed with patient, reports understanding. Crisis numbers provided to patient. All belongings taken with patient.
== END 2023-01-11 12:25 | disposition home or self-care (01) | DRG 885 ==
LOC: HO.ED 18:15 → HO.PADLT16 01-08 16:16
PROVIDERS: Physician Assistant Medical; Admitting Provider Psychiatry & Neurology Psychiatry; Emergency Provider Student in an Organized Health Care Education/Training Program; PCP Family Medicine; Visit Provider Psychiatry & Neurology Psychiatry
DX: F33.2 Major depressive disorder, recurrent severe without psychotic features (principal); Z59.01 Sheltered homelessness; F43.12 Post-traumatic stress disorder, chronic; F60.3 Borderline personality disorder; Z20.822 Contact with and (suspected) exposure to COVID-19; M79.7 Fibromyalgia; Z91.52 Personal history of nonsuicidal self-harm; Z87.891 Personal history of nicotine dependence; Z79.899 Other long term (current) drug therapy
CPT/HCPCS: 36415; 80048; 80076; 80143; 80178; 80179; 80307; 81001; 83690; 83735; 84484; 85025; 87635; 93005; 99285; S9485

== ENCOUNTER → 2023-01-08 16:15 | Outpatient (BNV) | payer OTHER, SELFPAY | PROVIDERS: Admitting Provider Psychiatry & Neurology Psychiatry; Emergency Provider Student in an Organized Health Care Education/Training Program; PCP Family Medicine; Visit Provider Social Worker | DX: F60.3 Borderline personality disorder (principal); F33.2 Major depressive disorder, recurrent severe without psychotic features; F43.12 Post-traumatic stress disorder, chronic | CPT/HCPCS: 90792; 99231; 99238 ==

== ENCOUNTER 2023-01-15 09:27 | Outpatient (REF) | payer OTHER, SELFPAY ==
[2023-01-15 11:19] LABS: MANUAL DIFF FLAG NO
[2023-01-15 11:37] LABS: Basophils Absolute Auto 0.1 X10*3/uL (0.0-0.2); Eosinophils Absolute Auto 0.2 X10*3/uL (0.0-0.4); Eosinophils Percent Auto 3.7 % (0-4); Hematocrit 38.6 % (37.0-47.0); Hemoglobin 13.3 g/dl (12.0-16.0); Imm Gran Abs Auto 0.03 X10*3/uL (0.00-0.03); Imm Gran Pct Auto 0.5 % (0.0-0.4); Lymphocytes Absolute Auto 2.8 X10*3/uL (1.2-4.9); Mean Corpuscular HGB Conc 34.5 g/dl (31.0-35.0); Mean Corpuscular Hemoglobin 29.8 pg (27.0-33.0); Mean Corpuscular Volume 86.5 fL (80.0-98.0); Mean Platelet Volume 10.6 fL (9.4-12.3); Monocytes Absolute Auto 0.3 X10*3/uL (0.1-1.2); Monocytes Percent Auto 5.1 % (2-11); Neutrophils Absolute Auto 2.8 x10*3/uL (2.0-8.3); Neutrophils Percent Auto 44.7 % (45-73); Platelet Count 234 X10*3/uL (160-400); Red Blood Count 4.46 X10*6/uL (4.20-5.50); Red Cell Distribution Width 12.2 % (11.0-16.0); White Blood Count 6.3 X10*3/uL (4.8-10.8)
[2023-01-15 11:43] LABS: Estimated Average Glucose 105 mg/dL; Hemoglobin A1c % 5.3 % (<6.0)
[2023-01-15 12:12] LABS: Alanine Aminotransferase 14 U/L (0-31); Albumin Level 4.1 g/dL (3.5-5.0); Alkaline Phosphatase 48 U/L (39-117); Anion Gap 11 (12-20); Aspartate Amino Transferase 19 U/L (5-31); Bilirubin Direct 0.2 mg/dL (0.0-0.5); Bilirubin Total 0.4 mg/dL (0.0-1.0); Blood Urea Nitrogen 3 mg/dL (9-16); Calcium 9.3 mg/dL (8.4-10.2); Carbon Dioxide 26 mmol/L (22-29); Chloride 105 mmol/L (96-108); Cholesterol 179 mg/dL (<200); Estimated Glomerular Filt Rate > 60; Free T4 (Free Thyroxine) 0.83 ng/dL (0.71-1.85); Glucose Random 93 mg/dL (60-115); HDL Cholesterol 57 mg/dL (>40); LDL Cholesterol Calculated 103 mg/dL (<100); Potassium 4.2 mmol/L (3.3-5.1); Sodium 138 mmol/L (135-145); Thyroid Stimulating Hormone 1.11 uIU/mL (0.32-4.0); Total Protein 7.4 g/dL (6.5-8.0); Triglycerides 96 mg/dL (<150); Vitamin D 25-OH Total 24.7 ng/mL (>30)
[2023-01-15 12:32] LABS: Creatinine Urine 66.67 mg/dL; Microalbumin Urine < 5.0 mg/L
[2023-01-15 12:53] LABS: CT PCR NOT DETECTED (Not Detect.); NG PCR NOT DETECTED (Not Detect.)
[2023-01-16 05:39] LABS: Syphilis Screen Nonreactive (Nonreactive)
[2023-01-16 06:11] LABS: HIV AB/AG Nonreactive (Nonreactive); HIV Num 1 0.05 S/CO (0.00-0.99); ~HepC Num1 0.14 S/CO (0.00-0.79); ~Hepatitis C Antibody Nonreactive (Nonreactive)
== END 2023-01-15 09:28 | disposition home or self-care (01) ==
LOC: HO.HHCL 09:27
PROVIDERS: Visit Provider Family Medicine
DX: F43.10 Post-traumatic stress disorder, unspecified (principal); Z11.52 Encounter for screening for COVID-19; I10 Essential (primary) hypertension; M79.7 Fibromyalgia; Z20.2 Contact with and (suspected) exposure to infections with a predominantly sexual mode of transmission
CPT/HCPCS: 0353U; 80048; 80061; 80076; 82043; 82306; 82570; 83036; 84439; 84443; 85025; 86780; 86803; 87389